=== PATIENT | female | born 1970 | race Caucasian/White ===

== ENCOUNTER → 2018-05-03 14:42 | Outpatient (CLI) | payer OTHER, MEDICAID, SELFPAY ==
--- NOTE | 2018-05-03 14:45 | DI.MG.S_ITS ---
BILATERAL DIGITAL DIAGNOSTIC MAMMOGRAM 3D/2D: 05/03/2018 CLINICAL: Left breast lump. Comparison is made to exams dated: 07/04/2016 mammogram, 11/24/2014 mammogram, and 08/26/2013 mammogram - [facility]. The tissue of both breasts is extremely dense, which lowers the sensitivity of mammography. There is a mass in the left breast at 2 o'clock anterior depth. This correlates as palpated. There also is a high density mass in the left breast at 9 o'clock middle depth. No other significant masses, calcifications, or other findings are seen in either breast. IMPRESSION: INCOMPLETE: NEEDS ADDITIONAL IMAGING EVALUATION The mass in the left breast at 2 o'clock anterior depth is indeterminate. An ultrasound is recommended. The high density mass in the left breast at 9 o'clock middle depth likely represents a cyst and is indeterminate. An ultrasound is recommended. This exam was interpreted at Station ID: [id number]. NOTE: For mammograms, a report in lay terms will be sent to the patient. Approximately 15% of breast malignancies will not be visualized mammographically. In the management of a palpable breast mass, a negative mammogram must not discourage biopsy of a clinically suspicious lesion. Electronically Signed By: Christi reed/giulia:05/03/2018 15:17:40 letter sent: Additional Imaging Needed ACR BI-RADS Category 0: Incomplete [id number]
--- NOTE | 2018-05-03 14:45 | DI.US.S_ITS ---
ULTRASOUND OF LEFT BREAST: 05/03/2018 CLINICAL: Palpable left breast lump. Patient returns for additional imaging over a suspected mass in the left breast. Comparison is made to exams dated: 05/03/2018 mammogram, 07/04/2016 mammogram, and 11/24/2014 mammogram - [facility]. Color flow ultrasound of the left breast was performed on the areas of interest. Mckenna scale images of the real-time examination were reviewed. There is a benign 1.4 cm x 0.9 cm x 1.2 cm simple cyst in the left breast at 3 o'clock anterior depth. This correlates as palpated and with mammography findings. There also is a benign 0.9 cm x 0.8 cm x 0.9 cm simple cyst in the left breast at 9 o'clock posterior depth. This correlates with mammography findings. IMPRESSION: BENIGN There is no sonographic evidence of malignancy. The 1.4 cm x 0.9 cm x 1.2 cm simple cyst in the left breast at 3 o'clock anterior depth is benign. The 0.9 cm x 0.8 cm x 0.9 cm simple cyst in the left breast at 9 o'clock posterior depth is benign. A 1 year screening mammogram is recommended. This exam was interpreted at Station ID: [id number]. Electronically Signed By: Christi reed/giulia:05/03/2018 18:15:33 letter sent: Normal Exam Ultrasound BI-RADS: 2 Benign
== END ==
PROVIDERS: PCP Internal Medicine
DX: R92.8 Other abnormal and inconclusive findings on diagnostic imaging of breast (principal); N60.02 Solitary cyst of left breast
CPT/HCPCS: 76642; 77066; G0279

== ENCOUNTER → 2018-11-30 16:06 | Outpatient (CLI) | payer OTHER, MEDICAID, SELFPAY ==
--- NOTE | 2018-11-30 16:07 | DI.RAD.S_ITS ---
PROCEDURE: XR CERVICAL SPINE 2V OR 3V INDICATIONS: neck pain TECHNIQUE: 3 view(s) of the cervical spine were acquired. COMPARISON: None. FINDINGS: Bones: No fractures or dislocations to the T2 level. The lateral masses of C1 appear intact on the odontoid view. Mild straightening of normal cervical lordosis likely related to positioning versus concurrent muscle spasms. Multilevel cervical spondylitic changes most pronounced at C5-6. No suspicious bony lesions. Soft tissues: No prevertebral soft tissue swelling. IMPRESSION: Cervical spine without acute osseous abnormalities. Multilevel cervical spondylosis most pronounced at C5-6. Dictated by: Alfa Thrasher M.D. on 11/30/2018 at 18:04 Approved by: Alfa Thrasher M.D. on 11/30/2018 at 18:05
== END ==
PROVIDERS: Family Provider Internal Medicine; PCP Internal Medicine; Visit Provider Internal Medicine
DX: M54.2 Cervicalgia (principal); M47.812 Spondylosis without myelopathy or radiculopathy, cervical region
CPT/HCPCS: 72040

== ENCOUNTER 2019-01-03 12:42 | Emergency (ER) | payer OTHER, MEDICAID, SELFPAY ==
[2019-01-03 12:50] VITALS: BP 130/74; PULSE 92; RESP 20; TEMP 37.2; O2SAT 98; BMI 21.9
--- NOTE | 2019-01-03 13:07 | PC.NURSE ---
pt reports while working at 1045am, with near syncope, 45 minutes later, with syncope, right head minor injury, down for 4 minutes, un witness, (states, playing the same songs) today with left eye discomfort, worsen with movement, denies visual changes. had cervical xray 3 weeks, recommends MRI, insurance refused, till PT. pt also reports, hx of syncope 2 weeks ago. now with dizziness. denies fever or vomiting.
--- NOTE | 2019-01-03 13:10 | ED.NECK ---
HPI - Neck Pain/Injury General Chief Complaint: Neck Pain/Injury Stated Complaint: 4 months pain behind left eye, fainted today Time Seen by Provider: 01/03/19 13:09 Source: patient and old records reviewed Mode of arrival: ambulatory Limitations: no limitations History of Present Illness HPI Narrative: This is a 48-year-old female who comes to the emergency department with complaint of neck pain on the left side that started in August, she has now started to have pain behind her left eye. She finds that it is worse when she lays flat and rotates her head. The pain will radiate down the left arm she states she had an x-ray was told she had arthritis and she needed to follow up with PT. She has had 3 episodes of syncope the 1st was about 2 weeks ago in the middle of the night she got up to go the bathroom she states she passed out she thinks she is on the floor for a minute to 5 minutes. She had an abrasion on her face. She had her cold/hot clammy feeling just before it happened. She had 2 episodes today they were about 40 minutes apart. She states she did hit her head. She states she did not totally lose consciousness but she went to tunnel vision and everything was black. So she was not really able to protect herself and that is how she hit her head on a brick. She states she had pain behind her left eye when that happened. She was driving and she felt dizzy and lightheaded, she does not describe any vertigo symptoms. she states she looked to the side and felt like her vision took a 2nd to catch up. With the 1st episode of syncope 2 weeks ago she had nausea, she has not had any since then. She has not had any vomiting. She denies any chest pain, no shortness of breath. She does sometimes get some tingling down her left arm and pain on the outside around the skin itself. 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 When she turns her neck to the left it feels like it snapped and cracks. Initially she was referred to her primary care because she was seeing a chiropractor and they were uncomfortable after manipulating her and hearing these noises. Related Data Home Medications Medication Instructions Recorded Confirmed ibuprofen 1 dose PO PRN PRN #0 08/10/11 01/03/19 alprazolam 0.5 mg tablet 0.5 mg PO BID PRN 11/30/18 01/03/19 Women's Daily Supplement 1 cap PO DAILY 01/03/19 01/03/19 acetaminophen 1 dose PO PRN PRN 01/03/19 01/03/19 estradiol 0.5 mg PO QPM 01/03/19 01/03/19 venlafaxine 150 mg PO QPM 01/03/19 01/03/19 Previous Rx's Medication Instructions Recorded norethindrone (contraceptive) 0.35 mg PO QDAY #28 tab 09/04/18 [Sheree] trazodone 50 mg tablet 50 mg PO DAILY #30 tab 11/30/18 Allergies Allergy/AdvReac Type Severity Reaction Status Date / Time No Known Drug Allergies Allergy Verified 01/03/19 13:04 Review of Systems Review of Systems ROS Unobtainable: All systems reviewed & are unremarkable except as noted in HPI and below Constitutional Denies chills, Denies difficulty sleeping, Denies fatigue, Denies fever(s), Reports headache(s) (Pain behind left eye), Denies lethargy, Denies malaise and Denies weakness Eyes Denies blurry vision, Denies diplopia and Reports other visual disturbances ENT Ears, Nose, Mouth, and Throat: Denies vertigo, Reports dizziness, Reports headache(s) (Pain behind left eye), Reports neck pain and Denies other (Facial droop) Cardiovascular Denies chest pain, Reports syncope, Denies edema, Denies irregular heart rhythm, Denies lightheadedness, Reports radiating jaw, neck or arm pain, Denies palpitations, Denies dyspnea, Denies dyspnea on exertion and Denies orthopnea Respiratory Denies chest congestion, Denies cough, Denies pain on inspiration, Denies pain with cough, Denies dyspnea, Denies dyspnea on exertion, Denies stridor and Denies wheezing Gastrointestinal Gastrointestinal: Denies abdominal pain, Denies change in bowel habits, Denies fecal incontinence, Denies diarrhea, Denies nausea (With 1st episode of syncope 2 weeks ago) and Denies vomiting Genitourinary Denies hematuria, Denies urinary frequency, Denies dysuria, Denies flank pain, Denies urinary incontinence and Denies urinary urgency Musculoskeletal Reports as per HPI, Denies abnormal gait, Denies back pain, Denies limited range of motion, Reports muscle weakness (? fire safety director per patient), Reports neck pain, Denies numbness, Reports radiating pain into limb and Reports tingling Integumentary/Breasts Denies rash Neurologic Denies abnormal speech, Denies abnormal gait, Denies confusion, Denies vertigo, Reports dizziness, Reports syncope, Reports headache(s) (Pain behind left eye), Denies lack of coordination, Denies numbness, Reports radicular pain, Denies seizure-like activity, Denies sensory deficit, Reports tingling, Reports paresthesias and Denies weakness Psychiatric Denies confusion Endocrine Denies fatigue and Denies palpitations Allergic/Immunologic Denies wheezing [facility] Medical History Palpitations (Chronic 07/29/04) Anxiety (Chronic) Depression (Chronic 07/25/11) Panic attack (Chronic 06/10/14) Migraine headache (Chronic 08/04/14) Dysmenorrhea (Chronic 08/04/14) Surgical History History of lithotripsy (Resolved) Status post delivery (Resolved ~2005) Social History Smoking Status: Former smoker Social History (Updated 01/03/19 @ 14:32 by Kathie Gomez DO) Smoking Status: Former smoker alcohol intake: current substance use type: does not use Exam Narrative Exam Narrative: GEN: well nourished, well appearing female, alert and oriented x 3, patient appears to be in mild distress. HEENT: Atraumatic, pupils are equal round reactive to light, extraocular movements are intact, nares are clear, TMs are clear with no fluid, there is no conjunctival pallor. Throat is clear without any exudates, erythema, tonsillar enlargement or uvular deviation, no facial droop. Full range of motion. HEART: Regular rate and rhythm without murmur, clicks, rubs. No carotid bruits, pulses are equal in upper extremities LUNGS:Lungs clear to auscultation, no wheezes, rales, crackles, chest moves symmetrically ABD:bowel sounds normal, soft, non-tender, no guarding, rebound, rigidity, no masses noted, no hepatosplenomegaly BACK: No cervical, thoracic or lumbar vertebral point tenderness. Patient has normal range of motion. Patient's gait is normal. Rectal exam is deferred. Muscle strength is 5/5 upper and lower extremities, DTRs are 2/4 upper and lower extremities. sensation intact to light palpation in upper and lower extremities as well as face. MSCL: Non-tender, no muscle atrophy, muscles strength 5/5 upper and lower extremities, full range of motion. NEURO:CN 2-12 intact, sensation normal, reflexes 2/4 upper and lower extremities. finger nose finger test normal, heel mcdaniel test normal Initial Vital Signs Initial Vital Signs: Vital Signs Temperature 99.0 F 01/03/19 12:50 Pulse Rate 92 H 01/03/19 12:50 Respiratory Rate 20 01/03/19 12:50 Blood Pressure 130/74 01/03/19 12:50 Pulse Oximetry 98 01/03/19 12:50 Course Orders Ordered: ED Orders 01/03/19 12:57 EKG-12 Lead Stat 01/03/19 13:27 XR chest 1V Stat 01/03/19 13:30 Complete Blood Count AUTO DIFF Stat Comprehensive Metabolic Panel Stat Lipase Stat Partial Thromboplastin Time Stat Prothrombin Time INR Stat Troponin & CK Cardiac Panel Stat 01/03/19 14:12 CT angio head and neck Stat 01/03/19 15:34 Urine Culture Stat Urine Microscopic Stat Discontinued Medications Sodium Chloride (Normal Saline 0.9%) 1,000 mls @ 1,000 mls/hr IV BOLUS ONE Stop: 01/03/19 15:11 Last Infusion: 01/03/19 15:45 Dose: 0 mls/hr Admin: 01/03/19 14:20 Dose: 1,000 mls/hr Vital Signs - 8 hr 01/03/19 12:50 01/03/19 13:30 01/03/19 14:00 Temperature 99.0 F Pulse Rate 92 H 77 86 Respiratory Rate 20 Blood Pressure 130/74 Blood Pressure [Left Arm] 123/79 145/83 H Pulse Oximetry 98 98 100 01/03/19 14:30 01/03/19 15:00 Temperature Pulse Rate 82 74 Respiratory Rate 16 16 Blood Pressure Blood Pressure [Left Arm] 135/73 134/77 Pulse Oximetry 100 99 MDM - Neck Pain/Injury Lab Data Attestation: I reviewed the patient's lab results. Result diagrams: 01/03/19 13:30 01/03/19 13:30 Lab Results 01/03/19 01/03/19 01/03/19 Range/Units 13:30 13:30 13:30 WBC 5.0 (4.5-11.0) X10^3/uL RBC 3.90 L (4.0-5.2) X10^6/uL Hgb 13.0 (12.0-16.0) g/dL Hct 37.3 (36-46) % MCV 95.9 (80-100) fL MCH 33.3 (26-34) PG MCHC 34.7 (30-36) % RDW 12.7 (11.6-14.8) % Plt Count 292 (150-400) X10^3/uL Neut % (Auto) 58.3 (50-75) % Lymph % (Auto) 31.1 (25-40) % Emanuel % (Auto) 8.5 (3-14) % Eos % (Auto) 1.3 L (2-4) % Baso % (Auto) 0.8 (0-2) % Neut # (Auto) 2900 (5087-1266) /uL Lymph # (Auto) 1500 (5254-1191) /uL Emanuel # (Auto) 400 (0-900) /uL Eos # (Auto) 100 (0-450) /uL Baso # (Auto) 0 (0-100) /uL PT 11.8 (10.1-12.7) SECONDS INR 1.0 (0.9-1.3) APTT 29 (26.4-36.2) SECONDS Sodium 139 (137-145) mmol/L Potassium 4.0 (3.4-5.1) mmol/L Chloride 101 (98-107) mmol/L Carbon Dioxide 28 (22-32) mmol/L BUN 20 H (7-17) mg/dL Creatinine 0.60 (0.52-1.04) mg/dL Estimated GFR > 60.0 (>60) mL/min BUN/Creatinine Ratio 33.3 H (6-22) Glucose 99 (70-100) mg/dL Calcium 9.3 (8.4-10.2) mg/dL Total Bilirubin 0.6 (0.2-1.3) mg/dL AST 24 (14-36) IU/L ALT 16 (9-52) IU/L Alkaline Phosphatase 51 (38-126) U/L Total Creatine Kinase 105 (30-135) U/L CK-MB (CK-2) 0.75 (<2.37) ng/mL CK-MB (CK-2) Rel Index 0.7 L (1.5-5.0) % Troponin I < 0.012 (0.01-0.034) ng/mL Total Protein 7.4 (6.3-8.2) g/dL Albumin 4.6 (3.5-5.0) g/dL Globulin 2.8 (1.7-4.1) g/dL Albumin/Globulin Ratio 1.6 (1.0-2.8) Lipase 107 (23-300) U/L Urine RBC (0-5/HPF) Urine WBC (0-5/HPF) Ur Squamous Epith Cells (0-5/HPF) Amorphous Sediment Urine Bacteria (None) Urine Mucus (Negative) Ur Culture Indicated? 01/03/19 Range/Units 15:34 WBC (4.5-11.0) X10^3/uL RBC (4.0-5.2) X10^6/uL Hgb (12.0-16.0) g/dL Hct (36-46) % MCV (80-100) fL MCH (26-34) PG MCHC (30-36) % RDW (11.6-14.8) % Plt Count (150-400) X10^3/uL Neut % (Auto) (50-75) % Lymph % (Auto) (25-40) % Emanuel % (Auto) (3-14) % Eos % (Auto) (2-4) % Baso % (Auto) (0-2) % Neut # (Auto) (0947-7494) /uL Lymph # (Auto) (6621-4594) /uL Emanuel # (Auto) (0-900) /uL Eos # (Auto) (0-450) /uL Baso # (Auto) (0-100) /uL PT (10.1-12.7) SECONDS INR (0.9-1.3) APTT (26.4-36.2) SECONDS Sodium (137-145) mmol/L Potassium (3.4-5.1) mmol/L Chloride (98-107) mmol/L Carbon Dioxide (22-32) mmol/L BUN (7-17) mg/dL Creatinine (0.52-1.04) mg/dL Estimated GFR (>60) mL/min BUN/Creatinine Ratio (6-22) Glucose (70-100) mg/dL Calcium (8.4-10.2) mg/dL Total Bilirubin (0.2-1.3) mg/dL AST (14-36) IU/L ALT (9-52) IU/L Alkaline Phosphatase (38-126) U/L Total Creatine Kinase (30-135) U/L CK-MB (CK-2) (<2.37) ng/mL CK-MB (CK-2) Rel Index (1.5-5.0) % Troponin I (0.01-0.034) ng/mL Total Protein (6.3-8.2) g/dL Albumin (3.5-5.0) g/dL Globulin (1.7-4.1) g/dL Albumin/Globulin Ratio (1.0-2.8) Lipase (23-300) U/L Urine RBC 1-5/hpf (0-5/HPF) Urine WBC 1-5/hpf (0-5/HPF) Ur Squamous Epith Cells 5-10 /hpf H (0-5/HPF) Amorphous Sediment 1+ Urine Bacteria Many (>30) H (None) Urine Mucus 1+ H (Negative) Ur Culture Indicated? Specimen cultured Imaging Data Chest x-ray: Attestation: I personally reviewed and interpreted this imaging study as follows: My impression: No acute process Head and neck angio: Radiologist's impression: Rhea Ariza 48 F 1970 [place] [address] CT Scan Report Signed Patient: ToRhea JMR#: [id number] : 1970Acct:[id number] Age/Sex: 48 / FDate of Service: 01/03/19 Loc: ED Accession Number: [id number] Procedure: CT angio head and neck Ordering Provider: Kathie Gomez D.O. PROCEDURE: CT ANGIO HEAD AND NECK INDICATIONS: syncope x 3 in 2 weeks, left eye pain, neck pain, left arm pain. TECHNIQUE: Pre-contrast 4.5 mm thick sections acquired from the foramen magnum to the vertex. After the administration of intravenous contrast, 1 mm thick sections acquired from the aortic arch through the [place] of [place]. Post-contrast 4.5 mm thick sections then re-acquired from the foramen magnum to the vertex. 3-dimensional nzeuofz-pdzwcbnqm-ctdmzbtpxs (MIP) and/or volume rendering reformats were acquired of the central intracranial vasculature and neck separately. COMPARISON: None. FINDINGS: Image quality: Excellent. BRAIN: CSF spaces: Ventricles are normal in size and shape. Basal cisterns are patent. No extra-axial fluid collections. Brain: No midline shift. No intracranial bleeds or masses. Mckenna-white matter interface appears intact. Skull and face: Calvarium and facial bones appear intact, without suspicious lesions. Orbits appear normal. Sinuses: Sinuses and mastoids are clear. HEAD CT ANGIOGRAPHY: Anterior circulation: Intracranial internal carotid arteries are normal in size and flow. The flow within the paired anterior cerebral arteries is normal and symmetric. The flow within the middle cerebral arteries is normal and symmetric. The anterior communicating artery is seen. No aneurysms are seen. Posterior circulation: Visualized portions of the vertebral arteries demonstrate normal caliber, and join to form a normal appearing basilar artery. Flow within the posterior cerebral arteries is normal and symmetric. No aneurysms are seen. Normal contrast opacification of the dural sinuses. NECK CT ANGIOGRAPHY: Carotid system: The great vessels demonstrate a conventional anatomy as they arise from the aortic arch. The origins of the common carotid arteries appear patent. The common carotid arteries demonstrate normal caliber and courses. The bifurcation regions are both widely patent. The internal carotid arteries demonstrate normal calibers and courses. Posterior circulation: The origins of the vertebral arteries both appear widely patent. The more superior extracranial portions of both vertebral arteries also demonstrate normal courses and calibers. They join to form a normal appearing basilar artery. Soft tissues: Visualized neck soft tissues demonstrate no suspicious abnormalities. Bones: No suspicious bony lesions. Visualized cervical spine appears normally aligned. IMPRESSION: 1. No acute intracranial disease process. 2. No large vessel occlusion, hemodynamically significant vascular stenosis, vascular dissection or aneurysm. Any quantitative measurements of stenosis were performed using NASCET criteria. Dictated by: Silvia Diez MD, PhD on 01/03/2019 at 14:53 Approved by: Silvia Diez MD, PhD on 01/03/2019 at 15:00 ECG Data Attestation: I personally reviewed and interpreted this ECG as follows: Interpretation: Sinus rhythm with a rate 83 ID interval 172 QRS of 90 QTC of [address] elevation or depression. MDM Narrative Medical decision making narrative: Patient was asking about an MRI specifically of the soft tissue of her neck but discussed that with her complaint of recurrent syncope, pain behind the left eye as well as pain in her neck and radiculopathy type symptoms in left extremity and do a head and neck CT angio to evaluate for blood, mass as well as dissection. EKG does not show any acute changes, lab work not show any major abnormalities including cardiac enzymes. Chest x-ray is normal. CT Angio of head and neck are negative for bleed, aneurysm or dissection. Patient and I discussed findings, patient see's Dr. Paulino. Dr. Paulino defers observation but will work on setting up for ECHO, Holter. Discussed at length with patient, asked to return if continuing episodes of syncope. Discharge Plan Departure Patient Disposition: Home Clinical Impression: Syncope Discharge Date/Time: 01/03/19 16:41 Interventions: ED Discharge Assessment Last Done: 01/03/19 16:41 Instructions: DI for Syncope in Adults (Fainting) Activity Restrictions/Additional Instructions: Call Dr. Paulino' office to set up follow up tomorrow. Case has been discussed with Dr. Paulino, he is happy to help set you up for echo as well as on monitor for heart arrhythmias as an outpatient. You can discuss any further imaging of your neck as needed. Avoid any sedating mediations until cleared by your physician. Return to the emergency room for recurrent symptoms, fevers greater than 100.4, sudden severe or worsening headaches, recurrent passing out, persistent vomiting, new chest pain, shortness of breath or other new or concerning symptoms. Prescriptions: No Action ibuprofen 200 mg Tablet 1 dose PO PRN PRN (Reason: pain) Qty: 0 RF: 0 norethindrone (contraceptive) [Sheree] 0.35 mg tablet 0.35 mg PO QDAY Qty: 28 RF: 1 alprazolam 0.5 mg tablet 0.5 mg PO BID PRN (Reason: anxiety/sleep) RF: 0 trazodone 50 mg tablet 50 mg PO DAILY Qty: 30 RF: 3 venlafaxine 150 mg capsule,extended release 24hr 150 mg PO QPM RF: 0 estradiol 0.5 mg tablet 0.5 mg PO QPM RF: 0 acetaminophen 325 mg Tablet 1 dose PO PRN PRN (Reason: pain) RF: 0 Women's Daily Supplement 1 cap PO DAILY RF: 0 Referrals: Josh Paulino MD [Primary Care Provider] -
--- NOTE | 2019-01-03 13:27 | DI.RAD.S_ITS ---
PROCEDURE: XR CHEST 1V INDICATIONS: Shortness of breath. TECHNIQUE: One view of the chest was acquired. COMPARISON: None. FINDINGS: Surgical changes and devices: None. Lungs and pleura: Lungs are clear. No pleural effusions or pneumothorax. Mediastinum: Mediastinal contours appear normal. Heart size is normal. Bones and chest wall: No suspicious bony lesions. Overlying soft tissues appear unremarkable. IMPRESSION: No acute cardio pulmonary pathology. Dictated by: Alexy Portillo M.D. on 01/03/2019 at 14:56 Approved by: Alexy Portillo M.D. on 01/03/2019 at 14:56
[2019-01-03 13:30] VITALS: BP 123/79; PULSE 77; O2SAT 98
[2019-01-03 13:43] LABS: Add Manual Diff / Slide Review NO; Basophils Absolute Auto 0 /uL (0-100); Basophils Percent Auto 0.8 % (0-2); Eosinophils Absolute Auto 100 /uL (0-450); Eosinophils Percent Auto 1.3 % (2-4); Hematocrit 37.3 % (36-46); Lymphocytes Absolute Auto 1500 /uL (1100-4500); Lymphocytes Percent Auto 31.1 % (25-40); Mean Corpuscular HGB Conc 34.7 % (30-36); Mean Corpuscular Hemoglobin 33.3 PG (26-34); Mean Corpuscular Volume 95.9 fL (80-100); Monocytes Absolute Auto 400 /uL (0-900); Monocytes Percent Auto 8.5 % (3-14); Neutrophils Absolute Auto 2900 /uL (1500-7000); Neutrophils Percent Auto 58.3 % (50-75); Platelet Count 292 X10^3/uL (150-400); Prothrombin Time 11.8 SECONDS (10.1-12.7); Red Cell Distribution Width 12.7 % (11.6-14.8)
[2019-01-03 13:46] LABS: PTT Partial Thromboplastin Tim 29 SECONDS (26.4-36.2)
[2019-01-03 13:47] LABS: Alanine Aminotransferase 16 IU/L (9-52); Albumin 4.6 g/dL (3.5-5.0); Albumin Globulin Ratio 1.6 (1.0-2.8); Alkaline Phosphatase 51 U/L (38-126); Aspartate Aminotransferase 24 IU/L (14-36); BUN Creatinine Ratio 33.3 (6-22); Bilirubin Total 0.6 mg/dL (0.2-1.3); Blood Urea Nitrogen 20 mg/dL (7-17); Calcium 9.3 mg/dL (8.4-10.2); Carbon Dioxide 28 mmol/L (22-32); Chloride 101 mmol/L (98-107); Creatine Kinase 105 U/L (30-135); Estimated Glomerular Filt Rate > 60.0 mL/min (>60); Globulin 2.8 g/dL (1.7-4.1); Glucose 99 mg/dL (70-100); HEMOLYSIS < 15 (0-50); Lipase 107 U/L (23-300); Sodium 139 mmol/L (137-145); Total Protein 7.4 g/dL (6.3-8.2)
[2019-01-03 13:59] LABS: Troponin I < 0.012 ng/mL (0.01-0.034)
[2019-01-03 14:00] VITALS: BP 145/83; PULSE 86; O2SAT 100
[2019-01-03 14:02] LABS: CKMB % Relative Index 0.7 % (1.5-5.0); Creatine Kinase MB 0.75 ng/mL (<2.37)
--- NOTE | 2019-01-03 14:12 | DI.CT.S_ITS ---
PROCEDURE: CT ANGIO HEAD AND NECK INDICATIONS: syncope x 3 in 2 weeks, left eye pain, neck pain, left arm pain. TECHNIQUE: Pre-contrast 4.5 mm thick sections acquired from the foramen magnum to the vertex. After the administration of intravenous contrast, 1 mm thick sections acquired from the aortic arch through the [place] of [place]. Post-contrast 4.5 mm thick sections then re-acquired from the foramen magnum to the vertex. 3-dimensional yovwguo-ocvwufozl-pfeucepxlb (MIP) and/or volume rendering reformats were acquired of the central intracranial vasculature and neck separately. COMPARISON: None. FINDINGS: Image quality: Excellent. BRAIN: CSF spaces: Ventricles are normal in size and shape. Basal cisterns are patent. No extra-axial fluid collections. Brain: No midline shift. No intracranial bleeds or masses. Mckenna-white matter interface appears intact. Skull and face: Calvarium and facial bones appear intact, without suspicious lesions. Orbits appear normal. Sinuses: Sinuses and mastoids are clear. HEAD CT ANGIOGRAPHY: Anterior circulation: Intracranial internal carotid arteries are normal in size and flow. The flow within the paired anterior cerebral arteries is normal and symmetric. The flow within the middle cerebral arteries is normal and symmetric. The anterior communicating artery is seen. No aneurysms are seen. Posterior circulation: Visualized portions of the vertebral arteries demonstrate normal caliber, and join to form a normal appearing basilar artery. Flow within the posterior cerebral arteries is normal and symmetric. No aneurysms are seen. Normal contrast opacification of the dural sinuses. NECK CT ANGIOGRAPHY: Carotid system: The great vessels demonstrate a conventional anatomy as they arise from the aortic arch. The origins of the common carotid arteries appear patent. The common carotid arteries demonstrate normal caliber and courses. The bifurcation regions are both widely patent. The internal carotid arteries demonstrate normal calibers and courses. Posterior circulation: The origins of the vertebral arteries both appear widely patent. The more superior extracranial portions of both vertebral arteries also demonstrate normal courses and calibers. They join to form a normal appearing basilar artery. Soft tissues: Visualized neck soft tissues demonstrate no suspicious abnormalities. Bones: No suspicious bony lesions. Visualized cervical spine appears normally aligned. IMPRESSION: 1. No acute intracranial disease process. 2. No large vessel occlusion, hemodynamically significant vascular stenosis, vascular dissection or aneurysm. Any quantitative measurements of stenosis were performed using NASCET criteria. Dictated by: Silvia Diez MD, PhD on 01/03/2019 at 14:53 Approved by: Silvia Diez MD, PhD on 01/03/2019 at 15:00
[2019-01-03] MEDS: SODIUM CHLORIDE 0.9% 1,000 ML 1000 ML IV (14:20)
--- NOTE | 2019-01-03 14:23 | ED_ITS ---
HPI - Neck Pain/Injury General Chief Complaint: Neck Pain/Injury Stated Complaint: 4 months pain behind left eye, fainted today Time Seen by Provider: 01/03/19 13:09 Source: patient and old records reviewed Mode of arrival: ambulatory Limitations: no limitations History of Present Illness HPI Narrative: This is a 48-year-old female who comes to the emergency department with complaint of neck pain on the left side that started in August, she has now started to have pain behind her left eye. She finds that it is worse when she lays flat and rotates her head. The pain will radiate down the left arm she states she had an x-ray was told she had arthritis and she needed to follow up with PT. She has had 3 episodes of syncope the 1st was about 2 weeks ago in the middle of the night she got up to go the bathroom she states she passed out she thinks she is on the floor for a minute to 5 minutes. She had an abrasion on her face. She had her cold/hot clammy feeling just before it happened. She had 2 episodes today they were about 40 minutes apart. She states she did hit her head. She states she did not totally lose consciousness but she went to tunnel vision and everything was black. So she was not really able to protect herself and that is how she hit her head on a brick. She states she had pain behind her left eye when that happened. She was driving and she felt dizzy and lightheaded, she does not describe any vertigo symptoms. she states she looked to the side and felt like her vision took a 2nd to catch up. With the 1st episode of syncope 2 weeks ago she had nausea, she has not had any since then. She has not had any vomiting. She denies any chest pain, no shortness of breath. She does sometimes get some tingling down her left arm and pain on the outside around the skin itself. She denies any weakness but felt like her hand box liner is sometimes a little bit less than full. When she turns her neck to the left it feels like it snapped and cracks. Initially she was referred to her primary care because she was seeing a chiropractor and they were uncomfortable after manipulating her and hearing these noises. Related Data Home Medications Medication Instructions Recorded Confirmed ibuprofen 1 dose PO PRN PRN #0 08/10/11 01/03/19 alprazolam 0.5 mg tablet 0.5 mg PO BID PRN 11/30/18 01/03/19 Women's Daily Supplement 1 cap PO DAILY 01/03/19 01/03/19 acetaminophen 1 dose PO PRN PRN 01/03/19 01/03/19 estradiol 0.5 mg PO QPM 01/03/19 01/03/19 venlafaxine 150 mg PO QPM 01/03/19 01/03/19 Previous Rx's Medication Instructions Recorded norethindrone (contraceptive) 0.35 mg PO QDAY #28 tab 09/04/18 [Sheree] trazodone 50 mg tablet 50 mg PO DAILY #30 tab 11/30/18 Allergies Allergy/AdvReac Type Severity Reaction Status Date / Time No Known Drug Allergies Allergy Verified 01/03/19 13:04 Review of Systems Review of Systems ROS Unobtainable: All systems reviewed & are unremarkable except as noted in HPI and below Constitutional Denies chills, Denies difficulty sleeping, Denies fatigue, Denies fever(s), R eports headache(s) (Pain behind left eye), Denies lethargy, Denies malaise and Denies weakness Eyes Denies blurry vision, Denies diplopia and Reports other visual disturbances ENT Ears, Nose, Mouth, and Throat: Denies vertigo, Reports dizziness, Reports headache(s) (Pain behind left eye), Reports neck pain and Denies other (Facial droop) Cardiovascular Denies chest pain, Reports syncope, Denies edema, Denies irregular heart rhythm, Denies lightheadedness, Reports radiating jaw, neck or arm pain, Denies palpitations, Denies dyspnea, Denies dyspnea on exertion and Denies orthopnea Respiratory Denies chest congestion, Denies cough, Denies pain on inspiration, Denies pain with cough, Denies dyspnea, Denies dyspnea on exertion, Denies stridor and Denies wheezing Gastrointestinal Gastrointestinal: Denies abdominal pain, Denies change in bowel habits, Denies fecal incontinence, Denies diarrhea, Denies nausea (With 1st episode of syncope 2 weeks ago) and Denies vomiting Genitourinary Denies hematuria, Denies urinary frequency, Denies dysuria, Denies flank pain, Denies urinary incontinence and Denies urinary urgency Musculoskeletal Reports as per HPI, Denies abnormal gait, Denies back pain, Denies limited range of motion, Reports muscle weakness (? box liner per patient), Reports neck pain, Denies numbness, Reports radiating pain into limb and Reports tingling Integumentary/Breasts Denies rash Neurologic Denies abnormal speech, Denies abnormal gait, Denies confusion, Denies vertigo, Reports dizziness, Reports syncope, Reports headache(s) (Pain behind left eye), Denies lack of coordination, Denies numbness, Reports radicular pain, Denies seizure-like activity, Denies sensory deficit, Reports tingling, Reports paresthesias and Denies weakness Psychiatric Denies confusion Endocrine Denies fatigue and Denies palpitations Allergic/Immunologic Denies wheezing [facility] Medical History Palpitations (Chronic 07/29/04) Anxiety (Chronic) Depression (Chronic 07/25/11) Panic attack (Chronic 06/10/14) Migraine headache (Chronic 08/04/14) Dysmenorrhea (Chronic 08/04/14) Surgical History History of lithotripsy (Resolved) Status post delivery (Resolved ~2005) Social History Smoking Status: Former smoker Social History (Updated 01/03/19 @ 14:32 by Kathie Gomez DO) Smoking Status: Former smoker alcohol intake: current substance use type: does not use Exam Narrative Exam Narrative: GEN: well nourished, well appearing female, alert and oriented x 3, patient appears to be in mild distress. HEENT: Atraumatic, pupils are equal round reactive to light, extraocular movements are intact, nares are clear, TMs are clear with no fluid, there is no conjunctival pallor. Throat is clear without any exudates, erythema, tonsillar enlargement or uvular deviation, no facial droop. Full range of motion. HEART: Regular rate and rhythm without murmur, clicks, rubs. No carotid bruits, pulses are equal in upper extremities LUNGS:Lungs clear to auscultation, no wheezes, rales, crackles, chest moves symmetrically ABD:bowel sounds normal, soft, non-tender, no guarding, rebound, rigidity, no masses noted, no hepatosplenomegaly BACK: No cervical, thoracic or lumbar vertebral point tenderness. Patient has normal range of motion. Patient's gait is normal. Rectal exam is deferred. Muscle strength is 5/5 upper and lower extremities, DTRs are 2/4 upper and lower extremities. sensation intact to light palpation in upper and lower extremities as well as face. MSCL: Non-tender, no muscle atrophy, muscles strength 5/5 upper and lower extremities, full range of motion. NEURO:CN 2-12 intact, sensation normal, reflexes 2/4 upper and lower extrem ities. finger nose finger test normal, heel mcdaniel test normal Initial Vital Signs Initial Vital Signs: Vital Signs Temperature 99.0 F 01/03/19 12:50 Pulse Rate 92 H 01/03/19 12:50 Respiratory Rate 20 01/03/19 12:50 Blood Pressure 130/74 01/03/19 12:50 Pulse Oximetry 98 01/03/19 12:50 Course Orders Ordered: ED Orders 01/03/19 12:57 EKG-12 Lead Stat 01/03/19 13:27 XR chest 1V Stat 01/03/19 13:30 Complete Blood Count AUTO DIFF Stat Comprehensive Metabolic Panel Stat Lipase Stat Partial Thromboplastin Time Stat Prothrombin Time INR Stat Troponin & CK Cardiac Panel Stat 01/03/19 14:12 CT angio head and neck Stat 01/03/19 15:34 Urine Culture Stat Urine Microscopic Stat Discontinued Medications Sodium Chloride (Normal Saline 0.9%) 1,000 mls @ 1,000 mls/hr IV BOLUS ONE Stop: 01/03/19 15:11 Last Infusion: 01/03/19 15:45 Dose: 0 mls/hr Admin: 01/03/19 14:20 Dose: 1,000 mls/hr Vital Signs - 8 hr 01/03/19 12:50 01/03/19 13:30 01/03/19 14:00 Temperature 99.0 F Pulse Rate 92 H 77 86 Respiratory Rate 20 Blood Pressure 130/74 Blood Pressure [Left Arm] 123/79 145/83 H Pulse Oximetry 98 98 100 01/03/19 14:30 01/03/19 15:00 Temperature Pulse Rate 82 74 Respiratory Rate 16 16 Blood Pressure Blood Pressure [Left Arm] 135/73 134/77 Pulse Oximetry 100 99 MDM - Neck Pain/Injury Lab Data Attestation: I reviewed the patient's lab results. Result diagrams: 01/03/19 13:30 01/03/19 13:30 Lab Results 01/03/19 01/03/19 01/03/19 Range/Units 13:30 13:30 13:30 WBC 5.0 (4.5-11.0) X10^3/uL RBC 3.90 L (4.0-5.2) X10^6/uL Hgb 13.0 (12.0-16.0) g/dL Hct 37.3 (36-46) % MCV 95.9 (80-100) fL MCH 33.3 (26-34) PG MCHC 34.7 (30-36) % RDW 12.7 (11.6-14.8) % Plt Count 292 (150-400) X10^3/uL Neut % (Auto) 58.3 (50-75) % Lymph % (Auto) 31.1 (25-40) % [place] % (Auto) 8.5 (3-14) % Eos % (Auto) 1.3 L (2-4) % Baso % (Auto) 0.8 (0-2) % Neut # (Auto) 2900 (0636-3100) /uL Lymph # (Auto) 1500 (1675-4899) /uL Dundy # (Auto) 400 (0-900) /uL Eos # (Auto) 100 (0-450) /uL Baso # (Auto) 0 (0-100) /uL PT 11.8 (10.1-12.7) SECONDS INR 1.0 (0.9-1.3) APTT 29 (26.4-36.2) SECONDS Sodium 139 (137-145) mmol/L Potassium 4.0 (3.4-5.1) mmol/L Chloride 101 (98-107) mmol/L Carbon Dioxide 28 (22-32) mmol/L BUN 20 H (7-17) mg/dL Creatinine 0.60 (0.52-1.04) mg/dL Estimated GFR > 60.0 (>60) mL/min BUN/Creatinine Ratio 33.3 H (6-22) Glucose 99 (70-100) mg/dL Calcium 9.3 (8.4-10.2) mg/dL Total Bilirubin 0.6 (0.2-1.3) mg/dL AST 24 (14-36) IU/L ALT 16 (9-52) IU/L Alkaline Phosphatase 51 (38-126) U/L Total Creatine Kinase 105 (30-135) U/L CK-MB (CK-2) 0.75 (<2.37) ng/mL CK-MB (CK-2) Rel Index 0.7 L (1.5-5.0) % Troponin I < 0.012 (0.01-0.034) ng/mL Total Protein 7.4 (6.3-8.2) g/dL Albumin 4.6 (3.5-5.0) g/dL Globulin 2.8 (1.7-4.1) g/dL Albumin/Globulin Ratio 1.6 (1.0-2.8) Lipase 107 (23-300) U/L Urine RBC (0-5/HPF) Urine WBC (0-5/HPF) Ur Squamous Epith Cells (0-5/HPF) Amorphous Sediment Urine Bacteria (None) Urine Mucus (Negative) Ur Culture Indicated? 01/03/19 Range/Units 15:34 WBC (4.5-11.0) X10^3/uL RBC (4.0-5.2) X10^6/uL Hgb (12.0-16.0) g/dL Hct (36-46) % MCV (80-100) fL MCH (26-34) PG MCHC (30-36) % RDW (11.6-14.8) % Plt Count (150-400) X10^3/uL Neut % (Auto) (50-75) % Lymph % (Auto) (25-40) % [place] % (Auto) (3-14) % Eos % (Auto) (2-4) % Baso % (Auto) (0-2) % Neut # (Auto) (3450-3427) /uL Lymph # (Auto) (4575-3736) /uL [place]undy # (Auto) (0-900) /uL Eos # (Auto) (0-450) /uL Baso # (Auto) (0-100) /uL PT (10.1-12.7) SECONDS INR (0.9-1.3) APTT (26.4-36.2) SECONDS Sodium (137-145) mmol/L Potassium (3.4-5.1) mmol/L Chloride (98-107) mmol/L Carbon Dioxide (22-32) mmol/L BUN (7-17) mg/dL Creatinine (0.52-1.04) mg/dL Estimated GFR (>60) mL/min BUN/Creatinine Ratio (6-22) Glucose (70-100) mg/dL Calcium (8.4-10.2) mg/dL Total Bilirubin (0.2-1.3) mg/dL AST (14-36) IU/L ALT (9-52) IU/L Alkaline Phosphatase (38-126) U/L Total Creatine Kinase (30-135) U/L CK-MB (CK-2) (<2.37) ng/mL CK-MB (CK-2) Rel Index (1.5-5.0) % Troponin I (0.01-0.034) ng/mL Total Protein (6.3-8.2) g/dL Albumin (3.5-5.0) g/dL Globulin (1.7-4.1) g/dL Albumin/Globulin Ratio (1.0-2.8) Lipase (23-300) U/L Urine RBC 1-5/hpf (0-5/HPF) Urine WBC 1-5/hpf (0-5/HPF) Ur Squamous Epith Cells 5-10 /hpf H (0-5/HPF) Amorphous Sediment 1+ Urine Bacteria Many (>30) H (None) Urine Mucus 1+ H (Negative) Ur Culture Indicated? Specimen cultured Imaging Data Chest x-ray: Attestation: I personally reviewed and interpreted this imaging study as follows: My impression: No acute process Head and neck angio: Radiologist's impression: Rhea Ariza 48 F 1970 [place] [id number] Scan Report Signed Patient: ToRhea JMR#: [id number] : 1970Acct:[id number] Age/Sex: 48 / FDate of Service: 01/03/19 Loc: ED Accession Number: [id number] Procedure: CT angio head and neck Ordering Provider: Kathie Gomez D.O. PROCEDURE: CT ANGIO HEAD AND NECK INDICATIONS: syncope x 3 in 2 weeks, left eye pain, neck pain, left arm pain. TECHNIQUE: Pre-contrast 4.5 mm thick sections acquired from the foramen magnum to the vertex. After the administration of intravenous contrast, 1 mm thick sections acquired from the aortic arch through the [place] of [place]. Post-contrast 4.5 mm thick sections then re- acquired from the foramen magnum to the vertex. 3-dimensional chmcnia-gmdbpvcbd-eyozbpoauj (MIP) and/or volume rendering reformats were acquired of the central intracranial vasculature and neck separately. COMPARISON: None. FINDINGS: Image quality: Excellent. BRAIN: CSF spaces: Ventricles are normal in size and shape. Basal cisterns are patent. No extra-axial fluid collections. Brain: No midline shift. No intracranial bleeds or masses. Mckenna-white matter interface appears intact. Skull and face: Calvarium and facial bones appear intact, without suspicious lesions. Orbits appear normal. Sinuses: Sinuses and mastoids are clear. HEAD CT ANGIOGRAPHY: Anterior circulation: Intracranial internal carotid arteries are normal in size and flow. The flow within the paired anterior cerebral arteries is normal and symmetric. The flow within the middle cerebral arteries is normal and symmetric. The anterior communicating artery is seen. No aneurysms are seen. Posterior circulation: Visualized portions of the vertebral arteries demonstrate normal caliber, and join to form a normal appearing basilar artery. Flow within the posterior cerebral arteries is normal and symmetric. No aneurysms are seen. Normal contrast opacification of the dural sinuses. NECK CT ANGIOGRAPHY: Carotid system: The great vessels demonstrate a conventional anatomy as they arise from the aortic arch. The origins of the common carotid arteries appear patent. The common carotid arteries demonstrate normal caliber and courses. The bifurcation regions are both widely patent. The internal carotid arteries demonstrate normal calibers and courses. Posterior circulation: The origins of the vertebral arteries both appear widely patent. The more superior extracranial portions of both vertebral arteries also demonstrate normal courses and calibers. They join to form a normal appearing basilar artery. Soft tissues: Visualized neck soft tissues demonstrate no suspicious abnormalities. Bones: No suspicious bony lesions. Visualized cervical spine appears normally aligned. IMPRESSION: 1. No acute intracranial disease process. 2. No large vessel occlusion, hemodynamically significant vascular stenosis, vascular dissection or aneurysm. Any quantitative measurements of stenosis were performed using NASCET criteria. Dictated by: Silvia Dize MD, PhD on 01/03/2019 at 14:53 Approved by: Silvia Diez MD, PhD on 01/03/2019 at 15:00 ECG Data Attestation: I personally reviewed and interpreted this ECG as follows: Interpretation: Sinus rhythm with a rate 83 MS interval 172 QRS of 90 QTC of [address] elevation or depression. MDM Narrative Medical decision making narrative: Patient was asking about an MRI specifically of the soft tissue of her neck but discussed that with her complaint of recurrent syncope, pain behind the left eye as well as pain in her neck and radiculopathy type symptoms in left extremity and do a head and neck CT angio to evaluate for blood, mass as well as dissection. EKG does not show any acute changes, lab work not show any major abnormalities including cardiac enzymes. Chest x-ray is normal. CT Angio of head and neck are negative for bleed, aneurysm or dissection. Patient and I discussed findings, patient see's Dr. Paulino. Dr. Paulino defers observation but will work on setting up for ECHO, Holter. Discussed at length with patient, asked to return if continuing episodes of syncope. Discharge Plan Departure Patient Disposition: Home Clinical Impression: Syncope Discharge Date/Time: 01/03/19 16:41 Interventions: ED Discharge Assessment Last Done: 01/03/19 16:41 Instructions: DI for Syncope in Adults (Fainting) Activity Restrictions/Additional Instructions: Call Dr. Paulino' office to set up follow up tomorrow. Case has been discussed with Dr. Paulino, he is happy to help set you up for echo as well as on monitor for heart arrhythmias as an outpatient. You can discuss any further imaging of your neck as needed. Avoid any sedating mediations until cleared by your physician. Return to the emergency room for recurrent symptoms, fevers greater than 100.4, sudden severe or worsening headaches, recurrent passing out, persistent vomiting, new chest pain, shortness of breath or other new or concerning symptoms. Prescriptions: No Action ibuprofen 200 mg Tablet 1 dose PO PRN PRN (Reason: pain) Qty: 0 RF: 0 norethindrone (contraceptive) [Sheree] 0.35 mg tablet 0.35 mg PO QDAY Qty: 28 RF: 1 alprazolam 0.5 mg tablet 0.5 mg PO BID PRN (Reason: anxiety/sleep) RF: 0 trazodone 50 mg tablet 50 mg PO DAILY Qty: 30 RF: 3 venlafaxine 150 mg capsule,extended release 24hr 150 mg PO QPM RF: 0 estradiol 0.5 mg tablet 0.5 mg PO QPM RF: 0 acetaminophen 325 mg Tablet 1 dose PO PRN PRN (Reason: pain) RF: 0 Women's Daily Supplement 1 cap PO DAILY RF: 0 Referrals: Josh Paulino MD [Primary Care Provider] -
[2019-01-03 14:30] VITALS: BP 135/73; PULSE 82; RESP 16; O2SAT 100
[2019-01-03 15:00] VITALS: BP 134/77; PULSE 74; RESP 16; O2SAT 99
[2019-01-03 16:02] LABS: Amorphous Sediment Urine 1+; RBC Urine 1-5/HPF (0-5/HPF); Squamous Epithelial Cell Urine 5-10 /HPF (0-5/HPF); WBC Urine 1-5/HPF (0-5/HPF)
[2019-01-03 16:03] LABS: Bacteria Urine Many (>30); Culture Indicated Urine Specimen Cultured; Mucus Urine 1+ (Negative)
== END 2019-01-03 16:41 | disposition home or self-care (01) ==
PROVIDERS: Emergency Provider Emergency Medicine; Family Provider Internal Medicine; PCP Internal Medicine
DX: R55 Syncope and collapse (principal); M54.2 Cervicalgia; M79.602 Pain in left arm; H57.12 Ocular pain, left eye
CPT/HCPCS: 36415; 36591; 70496; 70498; 71045; 80053; 81015; 82550; 82553; 83690; 84484; 85025; 85610; 85730; 87086; 93005; 93010; 96360; 99284; 99285; Q9967

== ENCOUNTER → 2019-03-26 19:52 | Outpatient (CLI) | payer OTHER, MEDICAID, SELFPAY | PROVIDERS: Family Provider Internal Medicine; PCP Internal Medicine; Visit Provider Physician Assistant | DX: J02.9 Acute pharyngitis, unspecified (principal) | CPT/HCPCS: 87070; 87077 ==

== ENCOUNTER → 2019-05-13 12:24 | Outpatient (CLI) | payer OTHER, MEDICAID, SELFPAY ==
--- NOTE | 2019-05-13 | DI.MG.S_ITS ---
BILATERAL DIGITAL SCREENING MAMMOGRAM 3D/2D WITH CAD: 05/13/2019 CLINICAL: Routine screening. Family history of breast cancer. Comparison is made to exams dated: 05/03/2018 mammogram, 07/04/2016 mammogram, and 11/24/2014 mammogram - [facility]. The tissue of both breasts is extremely dense, which lowers the sensitivity of mammography. Current study was also evaluated with a Computer Aided Detection (CAD) system. No significant masses, calcifications, or other findings are seen in either breast. There has been no significant interval change. IMPRESSION: NEGATIVE There is no mammographic evidence of malignancy. A 1 year screening mammogram is recommended. This exam was interpreted at Station ID: [id number]. NOTE: For mammograms, a report in lay terms will be sent to the patient. Approximately 15% of breast malignancies will not be visualized mammographically. In the management of a palpable breast mass, a negative mammogram must not discourage biopsy of a clinically suspicious lesion. Electronically Signed By: Alfa mancera/giulia:05/13/2019 12:53:58 copy to: Allie Carter letter sent: Normal Exam ACR BI-RADS Category 1: Negative 3341F
== END ==
PROVIDERS: PCP Internal Medicine
DX: Z12.31 Encounter for screening mammogram for malignant neoplasm of breast (principal); Z80.3 Family history of malignant neoplasm of breast
CPT/HCPCS: 77063; 77067

== ENCOUNTER → 2019-07-16 07:53 | Outpatient (CLI) | payer OTHER, MEDICAID, SELFPAY ==
--- NOTE | 2019-07-16 | DI.MRI.S_ITS ---
PROCEDURE: MR ORBITS FACE NECK WO/W CON INDICATIONS: Ocular pain, left eye TECHNIQUE: Noncontrast sagittal T1 spin echo, axial FLAIR, axial gradient echo, axial diffusion and ADC acquired through the brain. Coronal STIR, thin-slice axial T1 spin echo through the orbits. After the administration of contrast, thin-slice axial and coronal T1 spin echo with fat saturation through the orbits, axial T1 spin echo with fat saturation through the brain. COMPARISON: [facility], MR, BRAIN WITHOUT CONTRAST, 04/05/2010, 13:49. [facility], CT, CT ANGIO HEAD AND NECK, 01/03/2019, 14:16. FINDINGS: Image quality: Diagnostic Orbits: In this patient with this given history, scrutiny is given to the left orbit. No masses or abnormal enhancement can be seen. Globes are symmetrical. The optic nerves are normal in size, without abnormal signal or enhancement. No retrobulbar masses or fat abnormalities. The extra-ocular muscles are normal and symmetric in appearance. Lacrimal glands are normal. Optic chiasm is normal. Periorbital soft tissues appear normal. CSF spaces: Ventricles are normal in size and shape. Basal cisterns are patent. No extra-axial fluid collections. Brain: No intracranial bleeds or mass effects. No abnormal intracranial enhancement. Mckenna-white matter interface is intact. Diffusion weighted images demonstrate no acute ischemic insults. Pituitary gland appears normal, without sellar or suprasellar masses. Brainstem appears normal. Normal intravascular flow voids are present. Skull and face: Calvarial marrow is normal in signal. Sinuses: Sinuses and mastoids are clear. IMPRESSION: Unremarkable imaging study, without an imaging explanation for patient's presenting history of left ocular pain. Dictated by: Bk Reed M.D. on 07/16/2019 at 8:44 Approved by: Bk Reed M.D. on 07/16/2019 at 8:48
== END ==
PROVIDERS: PCP Internal Medicine; Visit Provider Internal Medicine
DX: H57.12 Ocular pain, left eye (principal)
CPT/HCPCS: 70543; A9579

== ENCOUNTER → 2020-05-16 16:41 | Outpatient (CLI) | payer OTHER, MEDICAID, SELFPAY | PROVIDERS: PCP Internal Medicine; Visit Provider Nurse Practitioner | DX: R30.0 Dysuria (principal) | CPT/HCPCS: 87077; 87086; 87147 ==

== ENCOUNTER → 2020-12-16 12:29 | Outpatient (CLI) | payer OTHER, MEDICAID, SELFPAY ==
--- NOTE | 2020-12-16 12:31 | DI.MG.S_ITS ---
BILATERAL DIGITAL SCREENING MAMMOGRAM 3D/2D WITH CAD: 12/16/2020 CLINICAL: Routine screening. Family history of breast cancer. Comparison is made to exams dated: 05/13/2019 mammogram, 05/03/2018 mammogram, and 07/04/2016 mammogram - [facility]. The tissue of both breasts is extremely dense, which lowers the sensitivity of mammography. Current study was also evaluated with a Computer Aided Detection (CAD) system. No significant masses, calcifications, or other findings are seen in either breast. There has been no significant interval change. IMPRESSION: NEGATIVE There is no mammographic evidence of malignancy. A 1 year screening mammogram is recommended. This exam was interpreted at Station ID: [id number]. NOTE: For mammograms, a report in lay terms will be sent to the patient. Approximately 15% of breast malignancies will not be visualized mammographically. In the management of a palpable breast mass, a negative mammogram must not discourage biopsy of a clinically suspicious lesion. Electronically Signed By: Dm Pulliam M.D., jr/giulia:12/16/2020 14:52:06 letter sent: Normal Exam ACR BI-RADS Category 1: Negative 3341F
== END ==
PROVIDERS: PCP Internal Medicine; Referring Provider Internal Medicine; Visit Provider Internal Medicine
DX: Z12.31 Encounter for screening mammogram for malignant neoplasm of breast (principal); Z80.3 Family history of malignant neoplasm of breast
CPT/HCPCS: 77063; 77067

== ENCOUNTER → 2021-02-10 15:28 | Outpatient (CLI) | payer OTHER, MEDICAID, SELFPAY ==
[2021-02-10 15:57] LABS: COVID19 -Nasal RAPID Negative (Negative)
== END ==
PROVIDERS: PCP Internal Medicine; Visit Provider Surgery
DX: Z20.822 Contact with and (suspected) exposure to COVID-19 (principal)
CPT/HCPCS: 87635; C9803

== ENCOUNTER 2021-02-11 14:12 | Day surgery (SDC) | payer OTHER, MEDICAID, SELFPAY ==
[2021-02-11] VITALS (7 sets, daily range): BP systolic 98–118; BP diastolic 50–77; PULSE 66–89; RESP 8–16; TEMP 36.1–37.1; O2SAT 99–100; BMI 22.3
--- NOTE | 2021-02-11 14:45 | SUR.PREOP ---
With IV start - Pt nauseated, hot, pale, diaphoretic. VS 88/60, 74, 16, 98%. IV inserted and fluids running wide open. Pt status improved after 150ml of fluid. VS recheck =97/51, 71, 18, 99%.
[2021-02-11] MEDS: LACTATED RINGERS 1,000 ML 200 ML IV (15:11)
--- NOTE | 2021-02-11 15:36 | PM.HP.1 ---
History of Present Illness History of Present Illness Date Patient Seen: 02/11/21 Time Patient Seen: 15:36 Chief complaint: SCREENING COLONOSCOPY Narrative: The patient presents for colorectal sreening. They have never had any previous examination for such. No personal or family history of colon cancer. On further history denies any recent gastrointestinal symptoms. No nausea, vomiting, abdominal pain, loss of appetite, unexplained weight loss, change in bowel habits, diarrhea, constipation, melena, hematochezia, or bright red blood per rectum. Patient History Medical History Anxiety Depression (07/25/11) Dysmenorrhea (08/04/14) Migraine headache (08/04/14) Needle phobia Palpitations (07/29/04) Panic attack (06/10/14) Surgical History History of lithotripsy Status post delivery (~2005) Family & Social History Social History: household members children Tobacco & Substance use: Smoking Status Never smoker alcohol intake current alcohol intake frequency a few times a month Substance Use Type does not use Meds Home Medications and Allergies Home Medications Medication Instructions Recorded Confirmed Type ibuprofen 1 dose PO PRN PRN #0 08/10/11 02/11/21 History Women's Daily Supplement 1 cap PO DAILY 01/03/19 02/11/21 History acetaminophen 1 dose PO PRN PRN 01/03/19 02/11/21 History venlafaxine 150 mg PO QPM 01/03/19 02/11/21 History neuroboost PO DAILY 10/27/19 05/16/20 History estradiol 0.5 mg tablet 0.5 mg PO QPM #30 tab 05/06/20 02/11/21 Rx norethindrone (contraceptive) 0.35 0.35 mg PO QDAY #28 tab 05/06/20 02/11/21 Rx mg tablet Allergies Allergy/AdvReac Type Severity Reaction Status Date / Time No Known Drug Allergies Allergy Verified 02/11/21 14:20 Review of Systems Review of Systems ROS: Yes All systems reviewed with the patient and are negative except as otherwise documented Exam Vital Signs (past 8 hours): - 02/11/21 14:55 Temperature 98.2 F Pulse Rate 89 Respiratory Rate 16 Blood Pressure 118/77 Oxygen Delivery Method Room Air Narrative Exam Narrative: GENERAL-well developed adult female, no acute distress HEENT-no scleral icterus, hearing intact NECK-no JVD, trachea midline CVS- regular rate, no peripheral edema RESP-unlabored respiratory effort, no audible wheezing GI-soft, nontender nondistended MSK-no cyanosis or clubbing, extremities without deformity SKIN-warm, dry NEURO-alert and oriented, no focal deficits PYSCH-Appropriate mood and affect Assessment & Plan Assessment & Plan narrative: The patient requires colorectal screening and colonoscopy is recommended. Technical details were discussed. Risks, benefits, alternatives explained. Risks including but not limited to myocardial infarction, aspiration, bleeding, pain, missed lesion, incomplete examination, need for further radiographic studies, colonic perforation, and need for major abdominal surgery were discussed. All questions were answered to their satisfaction, and they are in agreement with this plan.
[2021-02-11] MEDS: fentaNYL 250 MCG/5 ML INJ IV (15:49)
[2021-02-11] MEDS: MIDAZOLAM 5 MG/5 ML VIAL IV (15:54)
--- NOTE | 2021-02-11 16:08 | PM.OP.ENDO ---
Operative Date/Time/Diagnoses Date of procedure: 02/11/21 Time of procedure: 16:08 Pre-op diagnosis: Screening colonoscopy Post-op diagnosis: same Procedure & Clinicians Study performed: Colonoscopy Same procedure as scheduled: Yes Indications: Screening colonoscopy Surgeon: Jake Javed Procedure Notes Procedure in detail: Medications: Conscious sedation using 6 mg IV midazolam and 150 mcg IV of fentanyl The history and physical was performed/updated and the patient is ASA class is 1. The procedure was discussed in detail with the patient. Potential risks complications including infection, bleeding, missed diagnosis, perforation, need for surgery, and were explained. Their questions were answered and informed consent was obtained. Patient was brought to the procedure room and placed standard monitoring equipment. The patient's vital signs were monitored continuously throughout the entire procedure. Prior to starting time-out was performed. The patient was placed in the left lateral recumbent position. Procedural sedation was administered. Examination began with a thorough inspection of the perianal area there was no evidence of fissures, fistulae, external hemorrhoids or cutaneous malignancy. The colonoscopy scope was then placed into the anal canal and was advanced to the cecum, which was identified by the ileocecal valve, the appendiceal orifice and the confluence of the taenia. The scope was then slowly withdrawn examining colon thoroughly in all directions, irrigating it of any residual stool. 1. No masses polyps 2. Grade 1 internal hemorrhoids The patient tolerated the procedure well. They will be discharged once criteria are met. The prep was of good/excellent quality. The withdrawl time was 6 minutes. The sedation time was 26 minutes. Specimen(s): none sent Complications: none Impression: Normal colonoscopy Post-procedure Recommendations: Colonscopy in 10 years Disposition: same day surgery
== END 2021-02-11 16:43 | disposition home or self-care (01) ==
PROVIDERS: PCP Internal Medicine; Referring Provider Surgery; Visit Provider Surgery
PROC: 0DJD8ZZ Inspection of Lower Intestinal Tract, Via Natural or Artificial Opening Endoscopic (ICD-10-PCS; CPT 45378; principal; 2021-02-11 15:15)
DX: Z12.11 Encounter for screening for malignant neoplasm of colon (principal); K64.0 First degree hemorrhoids
CPT/HCPCS: 45378; 99152; J2250; J3010

== ENCOUNTER → 2022-02-24 09:14 | Outpatient (CLI) | payer OTHER, MEDICAID, SELFPAY ==
--- NOTE | 2022-02-24 | DI.MG.S_ITS ---
BILATERAL DIGITAL SCREENING MAMMOGRAM 3D/2D WITH CAD: 02/24/2022 CLINICAL: Routine screening. Family history of breast cancer. Comparison is made to exams dated: 12/16/2020 mammogram, 05/13/2019 mammogram, and 05/03/2018 mammogram - [facility]. The tissue of both breasts is heterogeneously dense. This may lower the sensitivity of mammography. Current study was also evaluated with a Computer Aided Detection (CAD) system. There is a possible 0.7 cm oval equal density focal asymmetry with an obscured margin in the left breast at 12 o'clock posterior depth. This is more prominent and increased in size. No other significant masses, calcifications, or other findings are seen in either breast. IMPRESSION: INCOMPLETE: NEEDS ADDITIONAL IMAGING EVALUATION The possible 0.7 cm oval equal density focal asymmetry in the left breast is indeterminate. Additional views with possible ultrasound are recommended. This exam was interpreted at Station ID: [id number]. NOTE: For mammograms, a report in lay terms will be sent to the patient. Approximately 15% of breast malignancies will not be visualized mammographically. In the management of a palpable breast mass, a negative mammogram must not discourage biopsy of a clinically suspicious lesion. Electronically Signed By: Alfa Thrasher M.D. aty/:02/24/2022 13:41:00 letter sent: Additional Imaging Needed ACR BI-RADS Category 0: Incomplete 3340F
== END ==
PROVIDERS: PCP Internal Medicine; Referring Provider Internal Medicine; Visit Provider Internal Medicine
DX: Z12.31 Encounter for screening mammogram for malignant neoplasm of breast (principal)
CPT/HCPCS: 77063; 77067

== ENCOUNTER → 2022-04-12 09:41 | Outpatient (CLI) | payer OTHER, MEDICAID, SELFPAY ==
--- NOTE | 2022-04-12 | DI.US.S_ITS ---
LIMITED ULTRASOUND OF LEFT BREAST: 04/12/2022 CLINICAL: Patient returns today to evaluate a focal asymmetry in the left breast. Comparison is made to exams dated: 04/12/2022 mammogram, 02/24/2022 mammogram, 12/16/2020 mammogram, 05/13/2019 mammogram, and 05/03/2018 [facility]. Color flow and real-time ultrasound of the left breast 1 o'clock region were performed. Mckenna scale images of the real-time examination were reviewed. There is a benign 0.8 cm x 0.8 cm x 0.5 cm oval simple cyst in the left breast at 1 o'clock posterior depth 8 cm from the nipple. This correlates with mammography findings. Color flow imaging demonstrates that there is no vascularity present. IMPRESSION: BENIGN There is no sonographic evidence of malignancy. The 0.8 cm simple cyst in the left breast is benign. A 1 year screening mammogram is recommended. Exam findings were conveyed to the patient. This exam was interpreted at Station ID: [id number]. Electronically Signed By: Ac Forman M.D. [facility] [place]/:04/12/2022 10:31:48 Entry: - 04/13/2022 10:03:23 letter sent: Normal Exam Ultrasound BI-RADS: 2 Benign
--- NOTE | 2022-04-12 | DI.MG.S_ITS ---
UNILATERAL LEFT DIGITAL DIAGNOSTIC MAMMOGRAM 3D/2D WITH ADDITIONAL VIEWS: 04/12/2022 CLINICAL: Additional evaluation requested from prior study. Comparison is made to exams dated: 02/24/2022 mammogram, 12/16/2020 mammogram, 05/13/2019 mammogram, 05/03/2018 ultrasound, and 05/03/2018 mammogram - [facility]. The tissue of left breast is heterogeneously dense. This may lower the sensitivity of mammography. There is a 0.7 cm oval mass in the left breast at 1 o'clock posterior depth. This is seen in additional views. No other significant masses or calcifications are seen in the breast. IMPRESSION: INCOMPLETE: NEEDS ADDITIONAL IMAGING EVALUATION The 0.7 cm oval mass in the left breast is indeterminate. A targeted ultrasound is recommended and will immediately follow. Based on Tyrer-Cuzick model (a risk assessment model), the patient's lifetime risk is 22.9% and her 10 year risk is 6.9%. If a patient has an elevated risk, a more comprehensive evaluation should be considered and/or a referral to a genetic counselor. The [employer], [employer], and NCCN Guidelines advise the consideration of Breast MRI as an adjunct to screening mammography in patients whose Lifetime risk to develop breast cancer is 20% or higher. This exam was interpreted at Station ID: [id number]. NOTE: For mammograms, a report in lay terms will be sent to the patient. Approximately 15% of breast malignancies will not be visualized mammographically. In the management of a palpable breast mass, a negative mammogram must not discourage biopsy of a clinically suspicious lesion. Electronically Signed By: Ac Forman M.D. [facility]/:04/12/2022 10:29:40 ACR BI-RADS Category 0: Incomplete [id number]
== END ==
PROVIDERS: PCP Internal Medicine; Referring Provider Internal Medicine; Visit Provider Internal Medicine
DX: R92.8 Other abnormal and inconclusive findings on diagnostic imaging of breast (principal); N60.02 Solitary cyst of left breast
CPT/HCPCS: 76642; 77065; G0279

== ENCOUNTER → 2023-10-10 09:08 | Outpatient (CLI) | payer OTHER, MEDICAID, SELFPAY ==
--- NOTE | 2023-10-10 09:10 | DI.MG.S_ITS ---
BILATERAL DIGITAL DIAGNOSTIC MAMMOGRAM 3D/2D: 10/10/2023 CLINICAL: Breast pain. Comparison is made to exams dated: 02/24/2022 mammogram, 12/16/2020 mammogram, and 05/13/2019 mammogram - [facility]. Both breasts are heterogeneously dense, which may obscure small masses (category c / 51-75% glandular tissue). No significant masses, calcifications, or other findings are seen in either breast. IMPRESSION: NEGATIVE There is no abnormality seen in the bilateral breast to correspond with the areas of clinical concern described as diffuse pain, however, recommend clinical follow up for persistent or worsening symptoms, or development of any clinically suspicious findings. There is no mammographic evidence of malignancy. A 1 year screening mammogram is recommended. Findings and recommendations were conveyed to the patient during today's evaluation. Based on Tyrer-Cuzick model (a risk assessment model), the patient's lifetime risk is 22.7% and her 10 year risk is 7.2%. If a patient has an elevated risk, a more comprehensive evaluation should be considered and/or a referral to a genetic counselor. The [employer], [employer], and NCCN Guidelines advise the consideration of Breast MRI as an adjunct to screening mammography in patients whose Lifetime risk to develop breast cancer is 20% or higher. This exam was interpreted at Station ID: [id number]. NOTE: For mammograms, a report in lay terms will be sent to the patient. Approximately 15% of breast malignancies will not be visualized mammographically. In the management of a palpable breast mass, a negative mammogram must not discourage biopsy of a clinically suspicious lesion. Electronically Signed By: Alfa Thrasher M.D. aty/:10/10/2023 10:03:58 letter sent: Clinical Evaluation ACR BI-RADS Category 1: Negative [id number]
== END ==
LOC: MAMMO 09:09
PROVIDERS: PCP Internal Medicine; Referring Provider Internal Medicine; Visit Provider Internal Medicine
DX: R92.8 Other abnormal and inconclusive findings on diagnostic imaging of breast (principal); N64.4 Mastodynia; N63.20 Unspecified lump in the left breast, unspecified quadrant
CPT/HCPCS: 77066; G0279

== ENCOUNTER 2024-04-02 09:00 | Outpatient (RCR) | payer OTHER, MEDICAID, SELFPAY ==
--- NOTE | 2024-01-01 17:19 | PT.OPPOC ---
Physical, Occupational & Speech Therapy At [facility] Current Diagnoses Gastro-esophageal reflux disease without esophagitis (01/01/24) Pain in right shoulder (01/01/24) Abnormal posture (01/01/24) Weakness (01/01/24) Visit Care Team Role Provider Type LISSETT [place] Attending Provider [employer] Representative Family Provider Primary Care Provider Referring Provider Specialty: Family Practice Address: [address] [place] [address], [facility] [place], [facility] Email: Plan Of Care PT-OP-T Assessment and Plan Start: 12/28/23 18:14 Freq: Status: Active Protocol: Document 01/01/24 08:16 [facility] (Rec: 01/01/24 09:12 [facility] [id number]) Physical Therapy Assessment Rehab Potential Rehabilitation Potential Good Evaluation Complexity Number of Personal Factors/Comorbidities 1-2 Number of Body Systems Impaired 4 or More Clinical Presentation at Evaluation Evolving Impairments Impairments Activity Tolerance,Functional Activities,Functional Mobility ,Pain,Posture,ROM,Soft Tissue Mobility,Strength Goals ROM Short Term Goal (STG) Pt will improve flex and abd to at least 135 without pain STG Duration 02/13 Long-Term Goal (LTG) Pt will have full RUE (as compared to L) without pain in order to allow dong daily activities w/o inc pain. LTG Duration 03/25 activities Long-Term Goal (LTG) Pt will report no pain w/ dressing, home tasks or work tasks greater than 1/10. LTG Duration 03/25 strength Short Term Goal (STG) Pt will be indep with HEP STG Duration 02/06 [place] Farmer Goal (LTG) Pt will score at least 4/5 on EFT and 4+/5 on all RUE MMT in order to show improved strength in order to do typical work activities w/o pain. LTG Duration 03/25 Quick Dash Impairment 59.1 Short Term Goal (STG) Pt will improve quick dash score to no higher than 40 to show improved functional ability. STG Duration 02/11 Long-Term Goal (LTG) Pt will improve quick dash score to no higher than 10 to show improved functional ability. LTG Duration 03/25 Assessment Summary Assessment Pt presents w/signficiant flare up w/inc pain of R shoulder pain which is now limiting her in ADLs and work related activities d/t pain. Based on s/s and testing, appears positive for impingement syndrome and/or tendonosis of supraspinatus. She has impaired movement mechanics of R shoulder and dec ROM and strength d/t pain. She has signficant postural changes that impair positioning of R shoulder which likely relates to pain and impaired movement mechanics. She would benefit from skilled PT to address these deficits to return her to typical function w/o inc pain. Physical Therapy Plan Frequency and Duration Frequency of Treatment 1-2x/wk Duration of treatment (weeks) 12 Plan of Care Start Date 01/01/24 Plan of Care End Date 03/25/24 Therapeutic Interventions Therapeutic Interventions Home Exercise Program,Joint Mobilizations,Manual Therapy, Neuromuscular Re-education, Patient/Caregiver Education, Self-Care/Home Management,Soft Tissue Mobilization,Taping, Therapeutic Activities, Therapeutic Exercises Modalities Cold Pack/Ice Massage,Electric Stimulation,Hot Packs, Infrared Therapy,Iontophoresis ,Ultrasound Next Visit Focus/Plan Next Note Type Treatment Note Next Visit Plan review exercises, try pulleys, isometric ER/flex/abd,if able tband ER manual: work on upper tspine, rib mobility, ACJ, SCJ, GHJ mobs Plan of Care Dates Plan of Care Start Date 01/01/24 Plan of Care End Date 03/25/24 Electronically Signed by: Bianca Baker, PT 01/02/24 [id number] If you are in agreement with this Plan of Care, please return a signed and dated copy. I have reviewed this Plan of Care and certify that the skilled therapy services above are required to meet the patient?s needs. Physician Signature Date Printed Name and Credentials Clinical Instructor Signature Printed Name and Credentials
--- NOTE | 2024-01-01 17:19 | PT.OIE ---
Current Diagnoses Gastro-esophageal reflux disease without esophagitis (01/01/24) Pain in right shoulder (01/01/24) Abnormal posture (01/01/24) Weakness (01/01/24) Past Medical History (Last Reviewed 02/11/21 @ 15:36 by Jake Javed MD) Anxiety Depression (07/25/11) Dysmenorrhea (08/04/14) Migraine headache (08/04/14) Needle phobia Palpitations (07/29/04) Panic attack (06/10/14) Past Surgical History (Last Reviewed 02/11/21 @ 15:36 by Jake Javed MD) History of lithotripsy Status post delivery (~2005) Visit Care Team Role Provider Type LISSETT [place] Attending Provider Advanced Store Group Manager Family Provider Primary Care Provider Referring Provider Specialty: Family Practice Address: [address] [place] [address], [id number] Email: [email or web address] Initial Evaluation PT-OP-A Visit Information Start: 12/28/23 18:14 Freq: Status: Active Protocol: Document 01/01/24 08:16 [facility] (Rec: 01/01/24 09:12 [facility] [id number]) Out-Patient Physical Therapy Visit Information Visit Information Visit Type Initial Evaluation Visit Start Time 08:17 Visit Stop Time 09:00 Visit Number 1 Number of MEDICAL SECRETARY RECEPTIONIST Visits 0 PT-OP-B Current Condition Start: 12/28/23 18:14 Freq: Status: Active Protocol: Document 01/01/24 08:16 [facility] (Rec: 01/01/24 09:12 [facility] [id number]) Current Condition History of Current Condition Onset Date 30 years w/worsening 2 months ago Current Complaints R shoulder History of Current Condition Pt reports R shoulder pain that started 30 years ago and she had a [employer] business. She saw an ortho that told her ot get out of the business and she hired [employer] but worked 20 years more. It has always given her a lot of trouble selena when cold . Took dgt to self defense class 2 months ago and was HAbd and hit the rubber chela. She felt something happen and it felt like it disconnected from my arm. Since then, it has had different pains. She can't reach behind or laying on the shoulder. WHen was working out, did feel like shoulder was stronger. DId have injections in the past 20 years ago when saw ortho. 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 Pt reports stomach ache by 2 w /ibuprofen. Has been taking it since self defense class. Pt takes 800mg at night and first thing in the AM. She takes some again when it seems to wear off. Prior Treatments and Tests PT for neck about 10 years ago ; years ago saw Dr. Valentine- massage helped Treatment Goals Patient/Caregiver Goals Want to get stronger, be able to take trash out at studio, be able to dress and do job w/ o inc pain;not have to ask for help w/activities PT-OP-C Subjective Start: 12/28/23 18:14 Freq: Status: Active Protocol: Document 01/01/24 08:16 [facility] (Rec: 01/01/24 09:12 [facility] [id number]) Patient Questionnaires Quick Dash- Upper Extremity Quick Dash UE Score 59.1 OP-PT Pain Assessment Location R shoulder Pain Location Details R shoulder and down arm and into scap Scale Used best:2 worst:8 Description Aching,Shooting,Tightness,With Movement Frequency Constant Radiating Location ant clavicle Variations/Patterns shoots down post elbow to med wrist Pain Aggravating Factors ADL's Other Pain Aggravating Factors laying on it, reaching behind, overhead reach, rolling soft wax Pain Alleviating Factors Cold,Heat Other Pain Alleviating Factors ibuprofen (daily-mult times) PT-OP-F Manual Assessment Start: 12/28/23 18:14 Freq: Status: Active Protocol: Document 01/01/24 08:16 [facility] (Rec: 01/01/24 09:12 [facility] [id number]) Manual Assessments Soft Tissue Assessment Soft Tissue Mobility Assessment tightness/tenderness (scalenes , UT, LS, infra, teres, rhomboids, traps, pecs, biceps tendon) Joint Mobility Assessment Joint Mobility Assessment 1st rib elevated R & clavicle at SC elevated and ant PT-OP-J Posture/Palpation/Skin Start: 12/28/23 18:14 Freq: Status: Active Protocol: Document 01/01/24 08:16 [facility] (Rec: 01/01/24 09:12 [facility] [id number]) Posture Evaluation [facility] Postural Classification System Tori Postural Classifications Posterior/Anterior Elbow Flexion Test 1 Comments Posture Comments torso rot R; calvicle more pronounced, R scap: abd, ant tipped, protracted, humerus ant in glenoid, fwd head, inc kyphosis PT-OP-K Range of Motion Start: 12/28/23 18:14 Freq: Status: Active Protocol: Document 01/01/24 08:16 [facility] (Rec: 01/01/24 09:12 [facility] [id number]) Shoulder Goniometric Range of Motion Shoulder Right Active Flexion 127 Extension 70 Abduction 125 External Rotation at 0 degrees Abduction 62 Internal Rotation Behind Back (text) T10 Comments pain w/flex, ext, ER IR Left Active Flexion 158 Extension 70 Abduction 180 External Rotation at 90 degrees 97 Abduction External Rotation at 0 degrees Abduction 83 Internal Rotation Behind Back (text) T5 PT-OP-L Special Tests Start: 12/28/23 18:14 Freq: Status: Active Protocol: Document 01/01/24 08:16 [facility] (Rec: 01/01/24 09:12 [facility] [id number]) Special Tests Shoulder Special Tests [place] Test Comments neg Empty Can Comments post Sulcus Test Results neg AC Joint Compression Comments neg Mike Wilberto Impingement Comments pos Yergason's Biceps Comments neg Speed's Biceps Comments pos Neer Impingement Comments pos PT-OP-M Strength Start: 12/28/23 18:14 Freq: Status: Active Protocol: Document 01/01/24 08:16 [facility] (Rec: 01/01/24 09:12 [facility] [id number]) Shoulder Strength Shoulder Manual Muscle Testing Right Flexion 3+ Fair+ Extension 3+ Fair+ Abduction (C5) 3+ Fair+ External Rotation 3+ Fair+ Internal Rotation 4+ Good+ Comments pain Left Flexion 4+ Good+ Extension 5 Normal Abduction (C5) 4+ Good+ External Rotation 5 Normal Internal Rotation 4+ Good+ Elbow/Forearm Strength Elbow and Forearm Manual Muscle Testing Right Flexion (C6) 4+ Good+ Supination 5 Normal Left Flexion (C6) 5 Normal Supination 5 Normal PT-OP-Q Treatments Start: 12/28/23 18:14 Freq: Status: Active Protocol: Document 01/01/24 08:16 [facility] (Rec: 01/01/24 09:12 [facility] [id number]) Therapeutic Exercises Supine Exercises flex Supine Exercise Name chess press to flex Side right Equipment Used cane Reps/Minutes 10 Standing Exercises ext Standing Exercise Name rows Side bilateral Equipment Used L1 Reps/Minutes 10 ER Standing Exercise Name AAROM Side right Equipment Used cane Reps/Minutes 10 Self-Care/Home Management Treatment Education Other Education 15 min: edu on anatomy of shoulder w/pictures used of rotator mm. Discussed less likely main issue is biceps d/ t testing results (no pain w/ flex or supination of elbow). edu on impingement syndrome and how her movement mechancis are causing issues. PT-OP-T Assessment and Plan Start: 12/28/23 18:14 Freq: Status: Active Protocol: Document 01/01/24 08:16 [facility] (Rec: 01/01/24 09:12 [facility] [id number]) Physical Therapy Assessment Rehab Potential Rehabilitation Potential Good Evaluation Complexity Number of Personal Factors/Comorbidities 1-2 Number of Body Systems Impaired 4 or More Clinical Presentation at Evaluation Evolving Impairments Impairments Activity Tolerance,Functional Activities,Functional Mobility ,Pain,Posture,ROM,Soft Tissue Mobility,Strength Goals ROM Short Term Goal (STG) Pt will improve flex and abd to at least 135 without pain STG Duration 02/13 Residential Goal (LTG) Pt will have full RUE (as compared to L) without pain in order to allow dong daily activities w/o inc pain. LTG Duration 03/25 activities Yarn Wrapper Goal (LTG) Pt will report no pain w/ dressing, home tasks or work tasks greater than 1/10. LTG Duration 03/25 strength Short Term Goal (STG) Pt will be indep with HEP STG Duration 02/06 Residential Goal (LTG) Pt will score at least 4/5 on EFT and 4+/5 on all RUE MMT in order to show improved strength in order to do typical work activities w/o pain. LTG Duration 03/25 Quick Dash Impairment 59.1 Short Term Goal (STG) Pt will improve quick dash score to no higher than 40 to show improved functional ability. STG Duration 02/11 Residential Goal (LTG) Pt will improve quick dash score to no higher than 10 to show improved functional ability. LTG Duration 03/25 Assessment Summary Assessment Pt presents w/signficiant flare up w/inc pain of R shoulder pain which is now limiting her in ADLs and work related activities d/t pain. Based on s/s and testing, appears positive for impingement syndrome and/or tendonosis of supraspinatus. She has impaired movement mechanics of R shoulder and dec ROM and strength d/t pain. She has signficant postural changes that impair positioning of R shoulder which likely relates to pain and impaired movement mechanics. She would benefit from skilled PT to address these deficits to return her to typical function w/o inc pain. Physical Therapy Plan Frequency and Duration Frequency of Treatment 1-2x/wk Duration of treatment (weeks) 12 Plan of Care Start Date 01/01/24 Plan of Care End Date 03/25/24 Therapeutic Interventions Therapeutic Interventions Home Exercise Program,Joint Mobilizations,Manual Therapy, Neuromuscular Re-education, Patient/Caregiver Education, Self-Care/Home Management,Soft Tissue Mobilization,Taping, Therapeutic Activities, Therapeutic Exercises Modalities Cold Pack/Ice Massage,Electric Stimulation,Hot Packs, Infrared Therapy,Iontophoresis ,Ultrasound Next Visit Focus/Plan Next Note Type Treatment Note Next Visit Plan review exercises, try pulleys, isometric ER/flex/abd,if able tband ER manual: work on upper tspine, rib mobility, ACJ, SCJ, GHJ mobs
--- NOTE | 2024-01-03 14:46 | PT.OTN ---
Current Diagnoses Gastro-esophageal reflux disease without esophagitis (01/03/24) Pain in right shoulder (01/03/24) Abnormal posture (01/03/24) Weakness (01/03/24) Physical Therapy Treatment Note PT-OP-A Visit Information Start: 12/28/23 18:14 Freq: Status: Active Protocol: Document 01/03/24 13:48 [facility] (Rec: 01/03/24 14:45 [facility] [id number]) Out-Patient Physical Therapy Visit Information Visit Information Visit Type Treatment Note Visit Note max 24 visits/yr Visit Start Time 13:49 Visit Stop Time 14:30 Visit Number 2 Number of DIRECTOR MATERNAL CHILD Visits 0 PT-OP-B Current Condition Start: 12/28/23 18:14 Freq: Status: Active Protocol: Document 01/01/24 08:16 [facility] (Rec: 01/01/24 09:12 [facility] [id number]) Current Condition History of Current Condition Onset Date 30 years w/worsening 2 months ago Current Complaints R shoulder History of Current Condition Pt reports R shoulder pain that started 30 years ago and she had a [employer] business. She saw an ortho that told her ot get out of the business and she hired [employer] but worked 20 years more. It has always given her a lot of trouble selena when cold . Took dgt to [employer] class 2 months ago and was HAbd and hit the rubber chela. She felt something happen and it felt like it disconnected from my arm. Since then, it has had different pains. She can't reach behind or laying on the shoulder. WHen was working out, did feel like shoulder was stronger. DId have injections in the past 20 years ago when saw ortho. 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 Pt reports stomach ache by 2 w /ibuprofen. Has been taking it since [employer] class. Pt takes 800mg at night and first thing in the AM. She takes some again when it seems to wear off. Prior Treatments and Tests PT for neck about 10 years ago ; years ago saw Dr. Valentine- massage helped Treatment Goals Patient/Caregiver Goals Want to get stronger, be able to take trash out at studio, be able to dress and do job w/ o inc pain;not have to ask for help w/activities PT-OP-C Subjective Start: 12/28/23 18:14 Freq: Status: Active Protocol: Document 01/03/24 13:48 [facility] (Rec: 01/03/24 14:45 [id number]-PT Subjective Patient Comments Patient Comments compliance w/exercises and feels like they are already helping PT-OP-F Manual Assessment Start: 12/28/23 18:14 Freq: Status: Active Protocol: Document 01/01/24 08:16 [facility] (Rec: 01/01/24 09:12 [id number] Manual Assessments Soft Tissue Assessment Soft Tissue Mobility Assessment tightness/tenderness (scalenes , UT, LS, infra, teres, rhomboids, traps, pecs, biceps tendon) Joint Mobility Assessment Joint Mobility Assessment 1st rib elevated R & clavicle at SC elevated and ant PT-OP-J Posture/Palpation/Skin Start: 12/28/23 18:14 Freq: Status: Active Protocol: Document 01/01/24 08:16 [facility] (Rec: 01/01/24 09:12 [id number] Posture Evaluation [facility] Postural Classification System [facility] Postural Classifications Posterior/Anterior Elbow Flexion Test 1 Comments Posture Comments torso rot R; calvicle more pronounced, R scap: abd, ant tipped, protracted, humerus ant in glenoid, fwd head, inc kyphosis PT-OP-K Range of Motion Start: 12/28/23 18:14 Freq: Status: Active Protocol: Document 01/01/24 08:16 [facility] (Rec: 01/01/24 09:12 [id number] Shoulder Goniometric Range of Motion Shoulder Right Active Flexion 127 Extension 70 Abduction 125 External Rotation at 0 degrees Abduction 62 Internal Rotation Behind Back (text) T10 Comments pain w/flex, ext, ER IR Left Active Flexion 158 Extension 70 Abduction 180 External Rotation at 90 degrees 97 Abduction External Rotation at 0 degrees Abduction 83 Internal Rotation Behind Back (text) T5 PT-OP-L Special Tests Start: 12/28/23 18:14 Freq: Status: Active Protocol: Document 01/01/24 08:16 [facility] (Rec: 01/01/24 09:12 [facility] [id number]) Special Tests Shoulder Special Tests [place] Test Comments neg Empty Can Comments post Sulcus Test Results neg AC Joint Compression Comments neg Mike Wilberto Impingement Comments pos Yergason's Biceps Comments neg Speed's Biceps Comments pos Neer Impingement Comments pos PT-OP-M Strength Start: 12/28/23 18:14 Freq: Status: Active Protocol: Document 01/01/24 08:16 [facility] (Rec: 01/01/24 09:12 [facility] [id number]) Shoulder Strength Shoulder Manual Muscle Testing Right Flexion 3+ Fair+ Extension 3+ Fair+ Abduction (C5) 3+ Fair+ External Rotation 3+ Fair+ Internal Rotation 4+ Good+ Comments pain Left Flexion 4+ Good+ Extension 5 Normal Abduction (C5) 4+ Good+ External Rotation 5 Normal Internal Rotation 4+ Good+ Elbow/Forearm Strength Elbow and Forearm Manual Muscle Testing Right Flexion (C6) 4+ Good+ Supination 5 Normal Left Flexion (C6) 5 Normal Supination 5 Normal PT-OP-Q Treatments Start: 12/28/23 18:14 Freq: Status: Active Protocol: Document 01/03/24 13:48 [facility] (Rec: 01/03/24 14:45 [facility] [id number]) Therapeutic Exercises Supine Exercises flex Supine Exercise Name chess press to flex Side right Equipment Used cane Reps/Minutes 10 Comments able after manual to do comfortably Sitting Exercises pully Sitting Exercise Name flex, scaption Side right Reps/Minutes 8 ea Comments AAROM Standing Exercises external rotation Side right Equipment Used orange Reps/Minutes 10 ext Standing Exercise Name rows Side bilateral Equipment Used L1 Reps/Minutes 10 ER Standing Exercise Name AAROM Side right Equipment Used cane Reps/Minutes 5 Comments good form and improved range Manual Therapy Treatment Soft Tissue Mobilization sup Body Location R UT, LS, Scalenes Mobilization Type Rolling Intensity/Depth Moderate Comments s/l and seated post Body Location R lat, rhomboids Mobilization Type Rolling Intensity/Depth Moderate Body Position Sidelying Joint Mobilizations GH Joint R post translation & lat gapping FM SC Joint R distraction & inf FM AC Joint R ant clavicle FM ribs Comments R PA rib 1-3; caudal rib 1 FM thoracic Comments PA T1-3 FM PT-OP-T Assessment and Plan Start: 12/28/23 18:14 Freq: Status: Active Protocol: Document 01/03/24 13:48 [facility] (Rec: 01/03/24 14:45 [facility] [id number]) Physical Therapy Assessment Goals ROM Short Term Goal (STG) Pt will improve flex and abd to at least 135 without pain STG Duration 02/13 Intermediate Goal (LTG) Pt will have full RUE (as compared to L) without pain in order to allow dong daily activities w/o inc pain. LTG Duration 03/25 activities Wrapper Layer Goal (LTG) Pt will report no pain w/ dressing, home tasks or work tasks greater than 1/10. LTG Duration 03/25 strength Short Term Goal (STG) Pt will be indep with HEP STG Duration 02/06 Intermediate Goal (LTG) Pt will score at least 4/5 on EFT and 4+/5 on all RUE MMT in order to show improved strength in order to do typical work activities w/o pain. LTG Duration 03/25 Quick Dash Impairment 59.1 Short Term Goal (STG) Pt will improve quick dash score to no higher than 40 to show improved functional ability. STG Duration 02/11 Wrapper Layer Goal (LTG) Pt will improve quick dash score to no higher than 10 to show improved functional ability. LTG Duration 03/25 Assessment Summary Assessment pt had improved R shoulder mobility after manual treatment. Today presented w/ improved ER and tolerated resisted ER. Physical Therapy Plan Frequency and Duration Frequency of Treatment 1-2x/wk Duration of treatment (weeks) 12 Plan of Care Start Date 01/01/24 Plan of Care End Date 03/25/24 Next Visit Focus/Plan Next Note Type Treatment Note Next Visit Plan review exercises, try pulleys, isometric flex/abd manual: work on upper tspine, rib mobility, ACJ, SCJ, GHJ mobs
--- NOTE | 2024-01-10 16:36 | PT.OTN ---
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 She saw an ortho that told her ot get out of the business and she hired [employer] but worked 20 years more. It has always given her a lot of trouble selena when cold . Took dgt to [employer] class 2 months ago and was HAbd and hit the rubber chela. She felt something happen and it felt like it disconnected from my arm. Since then, it has had different pains. She can't reach behind or laying on the shoulder. WHen was working out, did feel like shoulder was stronger. DId have injections in the past 20 years ago when saw ortho. 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 Pt reports stomach ache by 2 w /ibuprofen. Has been taking it since [employer] class. Pt takes 800mg at night and first thing in the AM. She takes some again when it seems to wear off. Prior Treatments and Tests PT for neck about 10 years ago ; years ago saw Dr. Valentine- massage helped Treatment Goals Patient/Caregiver Goals Want to get stronger, be able to take trash out at studio, be able to dress and do job w/ o inc pain;not have to ask for help w/activities PT-OP-C Subjective Start: 12/28/23 18:14 Freq: Status: Active Protocol: Document 01/10/24 12:56 AB (Rec: 01/10/24 14:33 AB [id number]) OP-PT Subjective Patient Comments Patient Comments Patient reports she is worse, UE is popping a lot. AROM right shoulder flexion 55 deg start of session PT-OP-F Manual Assessment Start: 12/28/23 18:14 Freq: Status: Active Protocol: Document 01/01/24 08:16 [facility] (Rec: 01/01/24 09:12 [facility] [id number]) Manual Assessments Soft Tissue Assessment Soft Tissue Mobility Assessment tightness/tenderness (scalenes , UT, LS, infra, teres, rhomboids, traps, pecs, biceps tendon) Joint Mobility Assessment Joint Mobility Assessment 1st rib elevated R & clavicle at SC elevated and ant PT-OP-J Posture/Palpation/Skin Start: 12/28/23 18:14 Freq: Status: Active Protocol: Document 01/01/24 08:16 [facility] (Rec: 01/01/24 09:12 [facility] [id number]) Posture Evaluation [facility] Postural Classification System [facility] Postural Classifications Posterior/Anterior Elbow Flexion Test 1 Comments Posture Comments torso rot R; calvicle more pronounced, R scap: abd, ant tipped, protracted, humerus ant in glenoid, fwd head, inc kyphosis PT-OP-K Range of Motion Start: 12/28/23 18:14 Freq: Status: Active Protocol: Document 01/01/24 08:16 [facility] (Rec: 01/01/24 09:12 [facility] [id number]) Shoulder Goniometric Range of Motion Shoulder Right Active Flexion 127 Extension 70 Abduction 125 External Rotation at 0 degrees Abduction 62 Internal Rotation Behind Back (text) T10 Comments pain w/flex, ext, ER IR Left Active Flexion 158 Extension 70 Abduction 180 External Rotation at 90 degrees 97 Abduction External Rotation at 0 degrees Abduction 83 Internal Rotation Behind Back (text) T5 PT-OP-L Special Tests Start: 12/28/23 18:14 Freq: Status: Active Protocol: Document 01/01/24 08:16 [facility] (Rec: 01/01/24 09:12 [facility] [id number]) Special Tests Shoulder Special Tests [place] Test Comments neg Empty Can Comments post Sulcus Test Results neg AC Joint Compression Comments neg Mike Wilberto Impingement Comments pos Jose Crgason's Biceps Comments neg Speed's Biceps Comments pos Neer Impingement Comments pos PT-OP-M Strength Start: 12/28/23 18:14 Freq: Status: Active Protocol: Document 01/01/24 08:16 [facility] (Rec: 01/01/24 09:12 [facility] [id number]) Shoulder Strength Shoulder Manual Muscle Testing Right Flexion 3+ Fair+ Extension 3+ Fair+ Abduction (C5) 3+ Fair+ External Rotation 3+ Fair+ Internal Rotation 4+ Good+ Comments pain Left Flexion 4+ Good+ Extension 5 Normal Abduction (C5) 4+ Good+ External Rotation 5 Normal Internal Rotation 4+ Good+ Elbow/Forearm Strength Elbow and Forearm Manual Muscle Testing Right Flexion (C6) 4+ Good+ Supination 5 Normal Left Flexion (C6) 5 Normal Supination 5 Normal PT-OP-Q Treatments Start: 12/28/23 18:14 Freq: Status: Active Protocol: Document 01/10/24 12:56 AB (Rec: 01/10/24 14:33 AB [id number]) Therapeutic Exercises Supine Exercises flex Supine Exercise Name overhead Equipment Used hands clasped Reps/Minutes X5 with 10 second hold Sidelying Exercises sidelying shoulder abduction Side right Reps/Minutes X1 Comments not aries sidelying shoulder ER Side right Reps/Minutes X10 Sitting Exercises pully Sitting Exercise Name scaption Reps/Minutes one minute Standing Exercises isometric shoulder abduction Side right Reps/Minutes X10 Comments verbal and visual cues isometric shoulder flexion Side right Reps/Minutes X10 Comments verbal and visual cues wall slide flexion Side right Reps/Minutes X10 Comments verbal cues to keep pressure on wall Manual Therapy Treatment Soft Tissue Mobilization right post cuff and periscapular muscles Mobilization Type Cross-Friction,Rolling Intensity/Depth Moderate Body Position Sidelying right pec Body Location right pec Mobilization Type Cross-Friction,Rolling Intensity/Depth Moderate Body Position Hooklying Joint Mobilizations scapular mobilization Joint right scapula Direction into depression and adduction Grade IV Body Position Sidelying Reps/Duration X10 each GH Joint inf and AP right shoulder Grade IV Body Position Hooklying Reps/Duration X10 SC Joint inf right Grade III Body Position Hooklying Reps/Duration X10 AC Joint right at clavicle Direction inf Grade III Body Position Hooklying Reps/Duration X10 Taping right shoulder Treatment Focus for posture and unloading UT, levator scap Type of Tape Kinesiotape PT-OP-T Assessment and Plan Start: 12/28/23 18:14 Freq: Status: Active Protocol: Document 01/10/24 12:56 AB (Rec: 01/10/24 14:33 AB [id number]) Physical Therapy Assessment Goals ROM Short Term Goal (STG) Pt will improve flex and abd to at least 135 without pain STG Duration 02/13 Caisson Worker Goal (LTG) Pt will have full RUE (as compared to L) without pain in order to allow dong daily activities w/o inc pain. LTG Duration 03/25 activities Fdc Goal (LTG) Pt will report no pain w/ dressing, home tasks or work tasks greater than 1/10. LTG Duration 03/25 strength Short Term Goal (STG) Pt will be indep with HEP STG Duration 02/06 Caisson Worker Goal (LTG) Pt will score at least 4/5 on EFT and 4+/5 on all RUE MMT in order to show improved strength in order to do typical work activities w/o pain. LTG Duration 03/25 Quick Dash Impairment 59.1 Short Term Goal (STG) Pt will improve quick dash score to no higher than 40 to show improved functional ability. STG Duration 02/11 Fdc Goal (LTG) Pt will improve quick dash score to no higher than 10 to show improved functional ability. LTG Duration 03/25 Assessment Summary Assessment Patient with 145 deg AAROM right shoulder flexion in supine during session, 74 deg AROM right shoulder flexion post exercise and manual therapy. Patient reports the shoulder feels pretty good end of session. Physical Therapy Plan Frequency and Duration Frequency of Treatment 1-2x/wk Duration of treatment (weeks) 12 Plan of Care Start Date 01/01/24 Plan of Care End Date 03/25/24 Next Visit Focus/Plan Next Note Type Treatment Note Next Visit Plan review exercises, try pulleys, manual: work on upper tspine, rib mobility, ACJ, SCJ, GHJ mobs, Assess tolerance to tape
--- NOTE | 2024-01-12 16:09 | PT.OTN ---
Current Diagnoses Gastro-esophageal reflux disease without esophagitis (01/12/24) Pain in right shoulder (01/12/24) Abnormal posture (01/12/24) Weakness (01/12/24) Physical Therapy Treatment Note PT-OP-A Visit Information Start: 12/28/23 18:14 Freq: Status: Active Protocol: Document 01/12/24 14:32 AB (Rec: 01/12/24 16:09 AB [id number]) Out-Patient Physical Therapy Visit Information Visit Information Visit Type Treatment Note Visit Note max 24 visits/yr Access Code: [email or web address] Visit Start Time 14:33 Visit Stop Time 15:15 Visit Number 4 Number of CHEMICAL MAKER Visits 2 PT-OP-B Current Condition Start: 12/28/23 18:14 Freq: Status: Active Protocol: Document 01/01/24 08:16 [facility] (Rec: 01/01/24 09:12 [facility] [id number]) Current Condition History of Current Condition Onset Date 30 years w/worsening 2 months ago Current Complaints R shoulder History of Current Condition Pt reports R shoulder pain that started 30 years ago and she had a [employer] business. She saw an ortho that told her ot get out of the business and she hired [employer] but worked 20 years more. It has always given her a lot of trouble selena when cold . Took dgt to [employer] class 2 months ago and was HAbd and hit the rubber chela. She felt something happen and it felt like it disconnected from my arm. Since then, it has had different pains. She can't reach behind or laying on the shoulder. WHen was working out, did feel like shoulder was stronger. DId have injections in the past 20 years ago when saw ortho. 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 Pt reports stomach ache by 2 w /ibuprofen. Has been taking it since [employer] class. Pt takes 800mg at night and first thing in the AM. She takes some again when it seems to wear off. Prior Treatments and Tests PT for neck about 10 years ago ; years ago saw Dr. Valentine- massage helped Treatment Goals Patient/Caregiver Goals Want to get stronger, be able to take trash out at studio, be able to dress and do job w/ o inc pain;not have to ask for help w/activities PT-OP-C Subjective Start: 12/28/23 18:14 Freq: Status: Active Protocol: Document 01/12/24 14:32 AB (Rec: 01/12/24 16:09 AB [id number]) OP-PT Subjective Patient Comments Patient Comments Patient reports the tape helped and needs to be retaped today. Patient reports the shoulder might be a little better. AROM right shoulder flexion 97 deg start of session. PT-OP-F Manual Assessment Start: 12/28/23 18:14 Freq: Status: Active Protocol: Document 01/01/24 08:16 [facility] (Rec: 01/01/24 09:12 [facility] [id number]) Manual Assessments Soft Tissue Assessment Soft Tissue Mobility Assessment tightness/tenderness (scalenes , UT, LS, infra, teres, rhomboids, traps, pecs, biceps tendon) Joint Mobility Assessment Joint Mobility Assessment 1st rib elevated R & clavicle at SC elevated and ant PT-OP-J Posture/Palpation/Skin Start: 12/28/23 18:14 Freq: Status: Active Protocol: Document 01/01/24 08:16 [facility] (Rec: 01/01/24 09:12 [facility] [id number]) Posture Evaluation [facility] Postural Classification System [facility] Postural Classifications Posterior/Anterior Elbow Flexion Test 1 Comments Posture Comments torso rot R; calvicle more pronounced, R scap: abd, ant tipped, protracted, humerus ant in glenoid, fwd head, inc kyphosis PT-OP-K Range of Motion Start: 12/28/23 18:14 Freq: Status: Active Protocol: Document 01/01/24 08:16 [facility] (Rec: 01/01/24 09:12 [facility] [id number]) Shoulder Goniometric Range of Motion Shoulder Right Active Flexion 127 Extension 70 Abduction 125 External Rotation at 0 degrees Abduction 62 Internal Rotation Behind Back (text) T10 Comments pain w/flex, ext, ER IR Left Active Flexion 158 Extension 70 Abduction 180 External Rotation at 90 degrees 97 Abduction External Rotation at 0 degrees Abduction 83 Internal Rotation Behind Back (text) T5 PT-OP-L Special Tests Start: 12/28/23 18:14 Freq: Status: Active Protocol: Document 01/01/24 08:16 [facility] (Rec: 01/01/24 09:12 [facility] [id number]) Special Tests Shoulder Special Tests [place] Test Comments neg Empty Can Comments post Sulcus Test Results neg AC Joint Compression Comments neg Mike Wilberto Impingement Comments pos Ellis's Biceps Comments neg Speed's Biceps Comments pos Neer Impingement Comments pos PT-OP-M Strength Start: 12/28/23 18:14 Freq: Status: Active Protocol: Document 01/01/24 08:16 [facility] (Rec: 01/01/24 09:12 [facility] [id number]) Shoulder Strength Shoulder Manual Muscle Testing Right Flexion 3+ Fair+ Extension 3+ Fair+ Abduction (C5) 3+ Fair+ External Rotation 3+ Fair+ Internal Rotation 4+ Good+ Comments pain Left Flexion 4+ Good+ Extension 5 Normal Abduction (C5) 4+ Good+ External Rotation 5 Normal Internal Rotation 4+ Good+ Elbow/Forearm Strength Elbow and Forearm Manual Muscle Testing Right Flexion (C6) 4+ Good+ Supination 5 Normal Left Flexion (C6) 5 Normal Supination 5 Normal PT-OP-Q Treatments Start: 12/28/23 18:14 Freq: Status: Active Protocol: Document 01/12/24 14:32 AB (Rec: 01/12/24 16:09 AB [id number]) Therapeutic Exercises Supine Exercises reclined shoulder flexion Reps/Minutes X4 not aries without band X 8 with level one band ER aries Comments Patient reports decreased discomfort when performing flex with blue band ER Sidelying Exercises sidelying shoulder ER Side right Reps/Minutes X5 Standing Exercises wall slide flexion Side right Reps/Minutes X10 Comments verbal cues to keep pressure on wall ext Standing Exercise Name rows Side bilateral Equipment Used L1 Reps/Minutes 10 Manual Therapy Treatment Soft Tissue Mobilization right post cuff and periscapular muscles Mobilization Type Cross-Friction,Rolling Intensity/Depth Moderate Body Position Sidelying right pec Body Location right pec Mobilization Type Cross-Friction,Rolling Intensity/Depth Moderate Body Position Hooklying Joint Mobilizations scapular mobilization Joint right scapula Direction into depression and adduction Grade IV Body Position Sidelying Reps/Duration X10 each GH Joint inf and AP right shoulder Grade IV Body Position Hooklying Reps/Duration X10 SC Joint inf right Grade III Body Position Hooklying Reps/Duration X10 AC Joint right at clavicle Direction inf Grade III Body Position Hooklying Reps/Duration X10 Taping right shoulder Treatment Focus for posture and unloading UT, levator scap Type of Tape Kinesiotape PT-OP-T Assessment and Plan Start: 12/28/23 18:14 Freq: Status: Active Protocol: Document 01/12/24 14:32 AB (Rec: 01/12/24 16:09 AB [id number]) Physical Therapy Assessment Assessment Summary Assessment 109 deg AROM right shoulder flexion should allow patient to reach items placed at higher levels in the home, but is not yet WNL. Physical Therapy Plan Frequency and Duration Frequency of Treatment 1-2x/wk Duration of treatment (weeks) 12 Plan of Care Start Date 01/01/24 Plan of Care End Date 03/25/24 Next Visit Focus/Plan Next Note Type Treatment Note Next Visit Plan review exercises, try pulleys, manual: work on upper tspine, rib mobility, ACJ, SCJ, GHJ mobs, assess aries to mini band, single thickness supine vs reclined/possibly add to HEP
--- NOTE | 2024-01-26 16:12 | PT.OTN ---
Current Diagnoses Gastro-esophageal reflux disease without esophagitis (01/26/24) Pain in right shoulder (01/26/24) Abnormal posture (01/26/24) Weakness (01/26/24) Physical Therapy Treatment Note PT-OP-A Visit Information Start: 12/28/23 18:14 Freq: Status: Active Protocol: Document 01/26/24 15:17 AB (Rec: 01/26/24 16:12 AB [id number]) Out-Patient Physical Therapy Visit Information Visit Information Visit Type Treatment Note Visit Note max 24 visits/yr Access Code: [email or web address] Visit Start Time 15:18 Visit Stop Time 16:00 Visit Number 5 Number of PRODUCE PRODUCTION TEAM MEMBER Visits 3 PT-OP-B Current Condition Start: 12/28/23 18:14 Freq: Status: Active Protocol: Document 01/01/24 08:16 [facility] (Rec: 01/01/24 09:12 [facility] [id number]) Current Condition History of Current Condition Onset Date 30 years w/worsening 2 months ago Current Complaints R shoulder History of Current Condition Pt reports R shoulder pain that started 30 years ago and she had a [employer] business. She saw an ortho that told her ot get out of the business and she hired [employer] but worked 20 years more. It has always given her a lot of trouble selena when cold . Took dgt to [employer] class 2 months ago and was HAbd and hit the rubber chela. She felt something happen and it felt like it disconnected from my arm. Since then, it has had different pains. She can't reach behind or laying on the shoulder. WHen was working out, did feel like shoulder was stronger. DId have injections in the past 20 years ago when saw ortho. 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 Pt reports stomach ache by 2 w /ibuprofen. Has been taking it since [employer] class. Pt takes 800mg at night and first thing in the AM. She takes some again when it seems to wear off. Prior Treatments and Tests PT for neck about 10 years ago ; years ago saw Dr. Valentine- massage helped Treatment Goals Patient/Caregiver Goals Want to get stronger, be able to take trash out at studio, be able to dress and do job w/ o inc pain;not have to ask for help w/activities PT-OP-C Subjective Start: 12/28/23 18:14 Freq: Status: Active Protocol: Document 01/26/24 15:17 AB (Rec: 01/26/24 16:12 AB [id number]) OP-PT Subjective Patient Comments Patient Comments Patient reports the pain is different. Popping and clicking persists. AROM right shoulder flexion 126 deg start of session. PT-OP-F Manual Assessment Start: 12/28/23 18:14 Freq: Status: Active Protocol: Document 01/01/24 08:16 [facility] (Rec: 01/01/24 09:12 [facility] [id number]) Manual Assessments Soft Tissue Assessment Soft Tissue Mobility Assessment tightness/tenderness (scalenes , UT, LS, infra, teres, rhomboids, traps, pecs, biceps tendon) Joint Mobility Assessment Joint Mobility Assessment 1st rib elevated R & clavicle at SC elevated and ant PT-OP-J Posture/Palpation/Skin Start: 12/28/23 18:14 Freq: Status: Active Protocol: Document 01/01/24 08:16 [facility] (Rec: 01/01/24 09:12 [facility] [id number]) Posture Evaluation [facility] Postural Classification System [facility] Postural Classifications Posterior/Anterior Elbow Flexion Test 1 Comments Posture Comments torso rot R; calvicle more pronounced, R scap: abd, ant tipped, protracted, humerus ant in glenoid, fwd head, inc kyphosis PT-OP-K Range of Motion Start: 12/28/23 18:14 Freq: Status: Active Protocol: Document 01/01/24 08:16 [facility] (Rec: 01/01/24 09:12 [facility] [id number]) Shoulder Goniometric Range of Motion Shoulder Right Active Flexion 127 Extension 70 Abduction 125 External Rotation at 0 degrees Abduction 62 Internal Rotation Behind Back (text) T10 Comments pain w/flex, ext, ER IR Left Active Flexion 158 Extension 70 Abduction 180 External Rotation at 90 degrees 97 Abduction External Rotation at 0 degrees Abduction 83 Internal Rotation Behind Back (text) T5 PT-OP-L Special Tests Start: 12/28/23 18:14 Freq: Status: Active Protocol: Document 01/01/24 08:16 [facility] (Rec: 01/01/24 09:12 [facility] [id number]) Special Tests Shoulder Special Tests Walker Test Comments neg Empty Can Comments post Sulcus Test Results neg AC Joint Compression Comments neg Mike Wilberto Impingement Comments pos Yergason's Biceps Comments neg Speed's Biceps Comments pos Neer Impingement Comments pos PT-OP-M Strength Start: 12/28/23 18:14 Freq: Status: Active Protocol: Document 01/01/24 08:16 [facility] (Rec: 01/01/24 09:12 [facility] [id number]) Shoulder Strength Shoulder Manual Muscle Testing Right Flexion 3+ Fair+ Extension 3+ Fair+ Abduction (C5) 3+ Fair+ External Rotation 3+ Fair+ Internal Rotation 4+ Good+ Comments pain Left Flexion 4+ Good+ Extension 5 Normal Abduction (C5) 4+ Good+ External Rotation 5 Normal Internal Rotation 4+ Good+ Elbow/Forearm Strength Elbow and Forearm Manual Muscle Testing Right Flexion (C6) 4+ Good+ Supination 5 Normal Left Flexion (C6) 5 Normal Supination 5 Normal PT-OP-Q Treatments Start: 12/28/23 18:14 Freq: Status: Active Protocol: Document 01/26/24 15:17 AB (Rec: 01/26/24 16:12 AB [id number]) Therapeutic Exercises Sidelying Exercises sidelying shoulder IR Side right Reps/Minutes X4 Comments not aries sidelying shoulder ER Side right Reps/Minutes X12 Sitting Exercises pully Sitting Exercise Name scaption Reps/Minutes one minute Standing Exercises high row Side bilateral Resistance level 2 band Reps/Minutes X15 X 2 Comments verbal cues and visual cues row Side bilateral Resistance level one peach band Reps/Minutes X15 Comments verbal cues to perform in pain free range Internal rotation Standing Exercise Name isometric reactive Side right Resistance level one peach band Reps/Minutes X10 Comments verbal cues, monitored for pain external rotation Standing Exercise Name isometric reactive Side right Equipment Used level one peach band Reps/Minutes 10 Comments verbal cues, monitored for pain Manual Therapy Treatment Soft Tissue Mobilization thoracic paraspinals Body Location bilateral Mobilization Type Cross-Friction,Sustained Pressure Intensity/Depth Moderate Body Position Sidelying Comments prior to mobilization right post cuff and periscapular muscles Mobilization Type Cross-Friction,Rolling Intensity/Depth Moderate Body Position Sidelying right pec Body Location right pec Mobilization Type Cross-Friction,Rolling Intensity/Depth Moderate Body Position Hooklying Joint Mobilizations scapular mobilization Joint right scapula Direction into depression and adduction Grade IV Body Position Sidelying Reps/Duration X10 each GH Joint inf and AP right shoulder Grade IV Body Position Hooklying Reps/Duration X10 AC Joint right at clavicle Direction inf Grade III Body Position Hooklying Reps/Duration x8 thoracic Joint thoracic vertebrae Direction PA Grade II Body Position Prone Reps/Duration X6 Comments PA T1-12 Self-Care/Home Management Treatment Activities Self-Care/Home Management Activities high row and isometric reactive shoulder IR and ER added to HEP. PT-OP-T Assessment and Plan Start: 12/28/23 18:14 Freq: Status: Active Protocol: Document 01/26/24 15:17 AB (Rec: 01/26/24 16:12 AB [id number]) Physical Therapy Assessment Goals ROM Short Term Goal (STG) Pt will improve flex and abd to at least 135 without pain STG Duration 02/13 Detention Goal (LTG) Pt will have full RUE (as compared to L) without pain in order to allow dong daily activities w/o inc pain. LTG Duration 03/25 activities Manager Customs Goal (LTG) Pt will report no pain w/ dressing, home tasks or work tasks greater than 1/10. LTG Duration 03/25 strength Short Term Goal (STG) Pt will be indep with HEP STG Duration 02/06 Detention Goal (LTG) Pt will score at least 4/5 on EFT and 4+/5 on all RUE MMT in order to show improved strength in order to do typical work activities w/o pain. LTG Duration 03/25 Quick Dash Impairment 59.1 Short Term Goal (STG) Pt will improve quick dash score to no higher than 40 to show improved functional ability. STG Duration 02/11 Detention Goal (LTG) Pt will improve quick dash score to no higher than 10 to show improved functional ability. LTG Duration 03/25 Assessment Summary Assessment AROM right shoulder flexion 115 end of session, likely due to fatigue. Patient was able to tolerate isometric reactives for shoulder IR and ER this session and was into session with significant increase in right shoulder flexion AROM compared to end of previous session. Physical Therapy Plan Frequency and Duration Frequency of Treatment 1-2x/wk Duration of treatment (weeks) 12 Plan of Care Start Date 01/01/24 Plan of Care End Date 03/25/24 Next Visit Focus/Plan Next Note Type Treatment Note Next Visit Plan review exercises, try pulleys, manual: work on upper tspine, rib mobility, ACJ, SCJ, GHJ mobs, assess aries to mini band, single thickness supine vs reclined/possibly add to HEP
--- NOTE | 2024-02-02 12:39 | PT.OTN ---
Current Diagnoses Gastro-esophageal reflux disease without esophagitis (02/02/24) Pain in right shoulder (02/02/24) Abnormal posture (02/02/24) Weakness (02/02/24) Physical Therapy Treatment Note PT-OP-A Visit Information Start: 12/28/23 18:14 Freq: Status: Active Protocol: Document 02/02/24 08:13 AB (Rec: 02/02/24 12:38 AB [id number]) Out-Patient Physical Therapy Visit Information Visit Information Visit Type Treatment Note Visit Note max 24 visits/yr Access Code: [email or web address] Visit Start Time 09:49 Visit Stop Time 10:30 Visit Number 6 Number of FARM MANAGEMENT ADVISER Visits 4 PT-OP-B Current Condition Start: 12/28/23 18:14 Freq: Status: Active Protocol: Document 01/01/24 08:16 [facility] (Rec: 01/01/24 09:12 [facility] [id number]) Current Condition History of Current Condition Onset Date 30 years w/worsening 2 months ago Current Complaints R shoulder History of Current Condition Pt reports R shoulder pain that started 30 years ago and she had a [employer] business. She saw an ortho that told her ot get out of the business and she hired [employer] but worked 20 years more. It has always given her a lot of trouble selena when cold . Took dgt to [employer] class 2 months ago and was HAbd and hit the rubber chela. She felt something happen and it felt like it disconnected from my arm. Since then, it has had different pains. She can't reach behind or laying on the shoulder. WHen was working out, did feel like shoulder was stronger. DId have injections in the past 20 years ago when saw ortho. 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 Pt reports stomach ache by 2 w /ibuprofen. Has been taking it since [employer] class. Pt takes 800mg at night and first thing in the AM. She takes some again when it seems to wear off. Prior Treatments and Tests PT for neck about 10 years ago ; years ago saw Dr. Valentine- massage helped Treatment Goals Patient/Caregiver Goals Want to get stronger, be able to take trash out at studio, be able to dress and do job w/ o inc pain;not have to ask for help w/activities PT-OP-C Subjective Start: 12/28/23 18:14 Freq: Status: Active Protocol: Document 02/02/24 08:13 AB (Rec: 02/02/24 12:38 AB [id number]) OP-PT Subjective Patient Comments Patient Comments Patient reports she is reaching higher, popping persists. Patient reports the pain is tight and painful posterior shoulder. AROM right shoulder flexion 141 deg start of session. PT-OP-F Manual Assessment Start: 12/28/23 18:14 Freq: Status: Active Protocol: Document 01/01/24 08:16 [facility] (Rec: 01/01/24 09:12 [facility] [id number]) Manual Assessments Soft Tissue Assessment Soft Tissue Mobility Assessment tightness/tenderness (scalenes , UT, LS, infra, teres, rhomboids, traps, pecs, biceps tendon) Joint Mobility Assessment Joint Mobility Assessment 1st rib elevated R & clavicle at SC elevated and ant PT-OP-J Posture/Palpation/Skin Start: 12/28/23 18:14 Freq: Status: Active Protocol: Document 01/01/24 08:16 [facility] (Rec: 01/01/24 09:12 [facility] [id number]) Posture Evaluation [facility] Postural Classification System [facility] Postural Classifications Posterior/Anterior Elbow Flexion Test 1 Comments Posture Comments torso rot R; calvicle more pronounced, R scap: abd, ant tipped, protracted, humerus ant in glenoid, fwd head, inc kyphosis PT-OP-K Range of Motion Start: 12/28/23 18:14 Freq: Status: Active Protocol: Document 01/01/24 08:16 [facility] (Rec: 01/01/24 09:12 [facility] [id number]) Shoulder Goniometric Range of Motion Shoulder Right Active Flexion 127 Extension 70 Abduction 125 External Rotation at 0 degrees Abduction 62 Internal Rotation Behind Back (text) T10 Comments pain w/flex, ext, ER IR Left Active Flexion 158 Extension 70 Abduction 180 External Rotation at 90 degrees 97 Abduction External Rotation at 0 degrees Abduction 83 Internal Rotation Behind Back (text) T5 PT-OP-L Special Tests Start: 12/28/23 18:14 Freq: Status: Active Protocol: Document 01/01/24 08:16 [facility] (Rec: 01/01/24 09:12 [facility] [id number]) Special Tests Shoulder Special Tests Elysian Test Comments neg Empty Can Comments post Sulcus Test Results neg AC Joint Compression Comments neg Mike Wilberto Impingement Comments pos Yergason's Biceps Comments neg Speed's Biceps Comments pos Neer Impingement Comments pos PT-OP-M Strength Start: 12/28/23 18:14 Freq: Status: Active Protocol: Document 01/01/24 08:16 [facility] (Rec: 01/01/24 09:12 [facility] [id number]) Shoulder Strength Shoulder Manual Muscle Testing Right Flexion 3+ Fair+ Extension 3+ Fair+ Abduction (C5) 3+ Fair+ External Rotation 3+ Fair+ Internal Rotation 4+ Good+ Comments pain Left Flexion 4+ Good+ Extension 5 Normal Abduction (C5) 4+ Good+ External Rotation 5 Normal Internal Rotation 4+ Good+ Elbow/Forearm Strength Elbow and Forearm Manual Muscle Testing Right Flexion (C6) 4+ Good+ Supination 5 Normal Left Flexion (C6) 5 Normal Supination 5 Normal PT-OP-Q Treatments Start: 12/28/23 18:14 Freq: Status: Active Protocol: Document 02/02/24 08:13 AB (Rec: 02/02/24 12:38 AB [id number]) Cardio Equipment Upper Body Ergometer (UBE) Duration (Minutes) 2 RPM 150 Height 7 Other standing Therapeutic Exercises Supine Exercises reclined shoulder flexion Equipment Used level one band Reps/Minutes X10 Comments Patient reports decreased discomfort when performing flex with blue band ER flex Supine Exercise Name overhead Equipment Used hands clasped Reps/Minutes X3 with 10 second hold Comments not aries Sidelying Exercises wall push up plus Reps/Minutes X2 Comments Verbal and visual cues, not aries Standing Exercises L stretch Side bilateral Reps/Minutes X8 Comments verbal and visual cues Manual Therapy Treatment Soft Tissue Mobilization right post cuff and periscapular muscles Mobilization Type Cross-Friction,Rolling Intensity/Depth Moderate Body Position Sidelying right pec Body Location right pec Mobilization Type Cross-Friction,Rolling Intensity/Depth Moderate Body Position Hooklying Joint Mobilizations scapular mobilization Joint right scapula Direction into depression and adduction Grade IV Body Position Sidelying Reps/Duration X10 each GH Joint inf and AP right shoulder Grade IV Body Position Hooklying Reps/Duration X10 Taping right shoulder Treatment Focus for posture and unloading UT, levator scap Type of Tape Kinesiotape PT-OP-T Assessment and Plan Start: 12/28/23 18:14 Freq: Status: Active Protocol: Document 02/02/24 08:13 AB (Rec: 02/02/24 12:38 AB [id number]) Physical Therapy Assessment Goals ROM Short Term Goal (STG) Pt will improve flex and abd to at least 135 without pain STG Duration 02/13 Mcc Goal (LTG) Pt will have full RUE (as compared to L) without pain in order to allow dong daily activities w/o inc pain. LTG Duration 03/25 activities Vault Service Mechanic Goal (LTG) Pt will report no pain w/ dressing, home tasks or work tasks greater than 1/10. LTG Duration 03/25 strength Short Term Goal (STG) Pt will be indep with HEP STG Duration 02/06 Mcc Goal (LTG) Pt will score at least 4/5 on EFT and 4+/5 on all RUE MMT in order to show improved strength in order to do typical work activities w/o pain. LTG Duration 03/25 Quick Dash Impairment 59.1 Short Term Goal (STG) Pt will improve quick dash score to no higher than 40 to show improved functional ability. STG Duration 02/11 Vault Service Mechanic Goal (LTG) Pt will improve quick dash score to no higher than 10 to show improved functional ability. LTG Duration 03/25 Assessment Summary Assessment AROM right shoulder flexion 135 deg end of session, likely due to fatigue. Patient into session with 141 deg AROM right shoulder flexion and continues to make steady gains in AROM. Physical Therapy Plan Frequency and Duration Frequency of Treatment 1-2x/wk Duration of treatment (weeks) 12 Plan of Care Start Date 01/01/24 Plan of Care End Date 03/25/24 Next Visit Focus/Plan Next Note Type Treatment Note Next Visit Plan review exercises, try pulleys, manual: work on upper tspine, rib mobility, ACJ, SCJ, GHJ mobs, Progress from isometric reactive ER as able, progress rowss as able
--- NOTE | 2024-02-05 17:50 | PT.OTN ---
Current Diagnoses Gastro-esophageal reflux disease without esophagitis (02/05/24) Pain in right shoulder (02/05/24) Abnormal posture (02/05/24) Weakness (02/05/24) Physical Therapy Treatment Note PT-OP-A Visit Information Start: 12/28/23 18:14 Freq: Status: Active Protocol: Document 02/05/24 16:52 [facility] (Rec: 02/05/24 17:50 [facility] [id number]) Out-Patient Physical Therapy Visit Information Visit Information Visit Type Progress Note Visit Note max 24 visits/yr Access Code: [email or web address] Visit Start Time 16:50 Visit Stop Time 17:30 Visit Number 7 Number of BUSINESS TECHNOLOGY ARCHITECT Visits 0 PT-OP-B Current Condition Start: 12/28/23 18:14 Freq: Status: Active Protocol: Document 01/01/24 08:16 [facility] (Rec: 01/01/24 09:12 [facility] [id number]) Current Condition History of Current Condition Onset Date 30 years w/worsening 2 months ago Current Complaints R shoulder History of Current Condition Pt reports R shoulder pain that started 30 years ago and she had a [employer] business. She saw an ortho that told her ot get out of the business and she hired [email or web address] but worked 20 years more. It has always given her a lot of trouble selena when cold . Took dgt to [employer] class 2 months ago and was HAbd and hit the rubber chela. She felt something happen and it felt like it disconnected from my arm. Since then, it has had different pains. She can't reach behind or laying on the shoulder. WHen was working out, did feel like shoulder was stronger. DId have injections in the past 20 years ago when saw ortho. 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 Pt reports stomach ache by 2 w /ibuprofen. Has been taking it since [employer] class. Pt takes 800mg at night and first thing in the AM. She takes some again when it seems to wear off. Prior Treatments and Tests PT for neck about 10 years ago ; years ago saw Dr. Valentine- massage helped Treatment Goals Patient/Caregiver Goals Want to get stronger, be able to take trash out at studio, be able to dress and do job w/ o inc pain;not have to ask for help w/activities PT-OP-C Subjective Start: 12/28/23 18:14 Freq: Status: Active Protocol: Document 02/05/24 16:52 [facility] (Rec: 02/05/24 17:50 [id number] OP-PT Subjective Patient Comments Patient Comments Pt reports feeling a little dizzy and just a little off today. Unsure if [facility] is making progress PT-OP-F Manual Assessment Start: 12/28/23 18:14 Freq: Status: Active Protocol: Document 01/01/24 08:16 [facility] (Rec: 01/01/24 09:12 [id number][facility] Manual Assessments Soft Tissue Assessment Soft Tissue Mobility Assessment tightness/tenderness (scalenes , UT, LS, infra, teres, rhomboids, traps, pecs, biceps tendon) Joint Mobility Assessment Joint Mobility Assessment 1st rib elevated R & clavicle at SC elevated and ant PT-OP-J Posture/Palpation/Skin Start: 12/28/23 18:14 Freq: Status: Active Protocol: Document 01/01/24 08:16 [facility] (Rec: 01/01/24 09:12 [id number]) Posture Evaluation [facility] Postural Classification System [facility] Postural Classifications Posterior/Anterior Elbow Flexion Test 1 Comments Posture Comments torso rot R; calvicle more pronounced, R scap: abd, ant tipped, protracted, humerus ant in glenoid, fwd head, inc kyphosis PT-OP-K Range of Motion Start: 12/28/23 18:14 Freq: Status: Active Protocol: Document 02/05/24 16:52 [facility] (Rec: 02/05/24 17:50 [facility] [id number]) Shoulder Goniometric Range of Motion Shoulder Right Active Flexion 125 Abduction 112 External Rotation at 0 degrees Abduction 61 Internal Rotation Behind Back (text) L4 Comments pain w/flex, ext, ER IR PT-OP-L Special Tests Start: 12/28/23 18:14 Freq: Status: Active Protocol: Document 01/01/24 08:16 [facility] (Rec: 01/01/24 09:12 [facility] [id number]) Special Tests Shoulder Special Tests Monitor Test Comments neg Empty Can Comments post Sulcus Test Results neg AC Joint Compression Comments neg Mike Wilberto Impingement Comments pos Yergason's Biceps Comments neg Speed's Biceps Comments pos Neer Impingement Comments pos PT-OP-M Strength Start: 12/28/23 18:14 Freq: Status: Active Protocol: Document 02/05/24 16:52 [facility] (Rec: 02/05/24 17:50 [facility] [id number]) Shoulder Strength Shoulder Manual Muscle Testing Right Flexion 3+ Fair+ Extension 4- Good- Abduction (C5) 3+ Fair+ External Rotation 4- Good- Internal Rotation 4+ Good+ Comments pain PT-OP-Q Treatments Start: 12/28/23 18:14 Freq: Status: Active Protocol: Document 02/05/24 16:52 [facility] (Rec: 02/05/24 17:50 [facility] [id number]) Therapeutic Exercises Sitting Exercises scap set Sitting Exercise Name shrug up, ER & set scap down Side bilateral Other Exercises n glide Other Exercise Name radial and med pos for inc pain Side right ROM Other Exercise Name all planes w/goniometry Side right isometrics Other Exercise Name MMT Side right Manual Therapy Treatment Soft Tissue Mobilization post Body Location R lat Comments w/scap movement Joint Mobilizations AC Joint R post scap FM seated ribs Comments external torsion ribs 4-6 FM R thoracic Body Position Sitting Comments transverse L T 5; PA T 7 FM Self-Care/Home Management Treatment Education Other Education BP: 112/76 sit 113/72stand HR: 75 O2: 99% gave pt water in sitting; edu on inc hydration 14 min total today PT-OP-T Assessment and Plan Start: 12/28/23 18:14 Freq: Status: Active Protocol: Document 02/05/24 16:52 [facility] (Rec: 02/05/24 17:50 [facility] [id number]) Physical Therapy Assessment Goals ROM Short Term Goal (STG) Pt will improve flex and abd to at least 135 without pain 02/04-no change until after manual and pt was able to achieve flex to 135 STG Duration 02/13 Gasoline Pump Mechanic Goal (LTG) Pt will have full RUE (as compared to L) without pain in order to allow dong daily activities w/o inc pain. LTG Duration 03/25 activities Nursing Home Goal (LTG) Pt will report no pain w/ dressing, home tasks or work tasks greater than 10/04. 02/04-able to put hair up w/o leaning to the R but still pain w/ADLs LTG Duration 03/25 strength Short Term Goal (STG) Pt will be indep with HEP STG Duration achieved-advancing as able Nursing Home Goal (LTG) Pt will score at least 4/5 on EFT and 4+/5 on all RUE MMT in order to show improved strength in order to do typical work activities w/o pain. 02/04-some progress LTG Duration 03/25 Quick Dash Impairment 59.1 Short Term Goal (STG) Pt will improve quick dash score to no higher than 40 to show improved functional ability. STG Duration 02/11 Gasoline Pump Mechanic Goal (LTG) Pt will improve quick dash score to no higher than 10 to show improved functional ability. LTG Duration 03/25 Assessment Summary Assessment Pt initially came in feeling dizzy and off today, but improved w/water and session focused on education and manual in seated for mobility. She showed min progress from last 6 visits at start of session and had limited L rot but after manual, was able to improve UE flex by 10 deg and had improved L cervical rot to full. Cont PT to work on mobility and strength Physical Therapy Plan Frequency and Duration Frequency of Treatment 1-2x/wk Duration of treatment (weeks) 12 Plan of Care Start Date 01/01/24 Plan of Care End Date 03/25/24 Next Visit Focus/Plan Next Note Type Treatment Note Next Visit Plan PNF scap manual: work on upper tspine, rib mobility, ACJ, SCJ, GHJ mobs, Progress from isometric reactive ER as able, progress rowss as able
--- NOTE | 2024-02-08 10:40 | PT.OTN ---
Current Diagnoses Gastro-esophageal reflux disease without esophagitis (02/08/24) Pain in right shoulder (02/08/24) Abnormal posture (02/08/24) Weakness (02/08/24) Physical Therapy Treatment Note PT-OP-A Visit Information Start: 12/28/23 18:14 Freq: Status: Active Protocol: Document 02/08/24 09:47 [facility] (Rec: 02/08/24 10:40 [facility] [id number]) Out-Patient Physical Therapy Visit Information Visit Information Visit Type Treatment Note Visit Note max 24 visits/yr Access Code: [email or web address] Visit Start Time 09:49 Visit Stop Time 10:29 Visit Number 8 Number of BASTING PULLER Visits 0 PT-OP-B Current Condition Start: 12/28/23 18:14 Freq: Status: Active Protocol: Document 01/01/24 08:16 [facility] (Rec: 01/01/24 09:12 [facility] [id number]) Current Condition History of Current Condition Onset Date 30 years w/worsening 2 months ago Current Complaints R shoulder History of Current Condition Pt reports R shoulder pain that started 30 years ago and she had a [employer] business. She saw an ortho that told her ot get out of the business and she hired [employer] but worked 20 years more. It has always given her a lot of trouble selena when cold . Took dgt to [employer] class 2 months ago and was HAbd and hit the rubber chela. She felt something happen and it felt like it disconnected from my arm. Since then, it has had different pains. She can't reach behind or laying on the shoulder. WHen was working out, did feel like shoulder was stronger. DId have injections in the past 20 years ago when saw ortho. 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 Pt reports stomach ache by 2 w /ibuprofen. Has been taking it since [employer] class. Pt takes 800mg at night and first thing in the AM. She takes some again when it seems to wear off. Prior Treatments and Tests PT for neck about 10 years ago ; years ago saw Dr. Valentine- massage helped Treatment Goals Patient/Caregiver Goals Want to get stronger, be able to take trash out at studio, be able to dress and do job w/ o inc pain;not have to ask for help w/activities PT-OP-C Subjective Start: 12/28/23 18:14 Freq: Status: Active Protocol: Document 02/08/24 09:47 [facility] (Rec: 02/08/24 10:40 [id number][facility] OP-PT Subjective Patient Comments Patient Comments Pt reports felt better after last session w/improved motion but woke up this AM and couldn't move her neck to L and now L shoulder feels tighter too. She found she was sleeping on 2 pillows on accident PT-OP-F Manual Assessment Start: 12/28/23 18:14 Freq: Status: Active Protocol: Document 01/01/24 08:16 [facility] (Rec: 01/01/24 09:12 [id number]) Manual Assessments Soft Tissue Assessment Soft Tissue Mobility Assessment tightness/tenderness (scalenes , UT, LS, infra, teres, rhomboids, traps, pecs, biceps tendon) Joint Mobility Assessment Joint Mobility Assessment 1st rib elevated R & clavicle at SC elevated and ant PT-OP-J Posture/Palpation/Skin Start: 12/28/23 18:14 Freq: Status: Active Protocol: Document 01/01/24 08:16 [facility] (Rec: 01/01/24 09:12 [id number]) Posture Evaluation [facility] Postural Classification System [facility] Postural Classifications Posterior/Anterior Elbow Flexion Test 1 Comments Posture Comments torso rot R; calvicle more pronounced, R scap: abd, ant tipped, protracted, humerus ant in glenoid, fwd head, inc kyphosis PT-OP-K Range of Motion Start: 12/28/23 18:14 Freq: Status: Active Protocol: Document 02/05/24 16:52 [facility] (Rec: 02/05/24 17:50 [facility] [id number]) Shoulder Goniometric Range of Motion Shoulder Right Active Flexion 125 Abduction 112 External Rotation at 0 degrees Abduction 61 Internal Rotation Behind Back (text) L4 Comments pain w/flex, ext, ER IR PT-OP-L Special Tests Start: 12/28/23 18:14 Freq: Status: Active Protocol: Document 01/01/24 08:16 [facility] (Rec: 01/01/24 09:12 [facility] [id number]) Special Tests Shoulder Special Tests [place] Test Comments neg Empty Can Comments post Sulcus Test Results neg AC Joint Compression Comments neg Mike Wilberto Impingement Comments pos Yergason's Biceps Comments neg Speed's Biceps Comments pos Neer Impingement Comments pos PT-OP-M Strength Start: 12/28/23 18:14 Freq: Status: Active Protocol: Document 02/05/24 16:52 [facility] (Rec: 02/05/24 17:50 [facility] [id number]) Shoulder Strength Shoulder Manual Muscle Testing Right Flexion 3+ Fair+ Extension 4- Good- Abduction (C5) 3+ Fair+ External Rotation 4- Good- Internal Rotation 4+ Good+ Comments pain PT-OP-Q Treatments Start: 12/28/23 18:14 Freq: Status: Active Protocol: Document 02/08/24 09:47 [facility] (Rec: 02/08/24 10:40 [facility] [id number]) Manual Therapy Treatment Soft Tissue Mobilization sup Body Location R>L UT, LS, Scalenes, SCM, SO Mobilization Type Rolling Intensity/Depth Moderate Comments supine, s/l, seated post Body Location R lat Comments w/scap movement Joint Mobilizations cervical Comments transverse L C2; UAP C1,2 FM transverse L C4 and 7 FM neg cranial n screen, arterial positional screening, and upper cervical ligamentous testing prior to manual SC Comments distraction and caudal glide FM w/flex AC Joint R post scap FM s/l ribs Comments External torsion ribs 3-4 FM; PA ribs R 2-3 FM; thoracic Comments transverse glide T1-2 FM L; T6 -7 FM L Neuro Re-Education Treatment Movement Re-Education Movement Re-education Activities 1. self chin tuck w/gentle resistsance at chin 2. self T1-2 glide L w/R rot of trunk and neck w/Wt shift to L hip Other Activities facilitation Comments 1. chin tuck w/PT ant shear force at R C7, B C2, C4 sustained holds 2. rhythmic initiation post dep R to sustained holds scap PT-OP-T Assessment and Plan Start: 12/28/23 18:14 Freq: Status: Active Protocol: Document 02/08/24 09:47 [facility] (Rec: 02/08/24 10:40 [facility] [id number]) Physical Therapy Assessment Goals ROM Short Term Goal (STG) Pt will improve flex and abd to at least 135 without pain 02/04-no change until after manual and pt was able to achieve flex to 135 STG Duration 02/13 Mophead Sewer Goal (LTG) Pt will have full RUE (as compared to L) without pain in order to allow dong daily activities w/o inc pain. LTG Duration 03/25 activities Retirement Goal (LTG) Pt will report no pain w/ dressing, home tasks or work tasks greater than 1/10. 02/04-able to put hair up w/o leaning to the R but still pain w/ADLs LTG Duration 03/25 strength Short Term Goal (STG) Pt will be indep with HEP STG Duration achieved-advancing as able Mophead Sewer Goal (LTG) Pt will score at least 4/5 on EFT and 4+/5 on all RUE MMT in order to show improved strength in order to do typical work activities w/o pain. 02/04-some progress LTG Duration 03/25 Quick Dash Impairment 59.1 Short Term Goal (STG) Pt will improve quick dash score to no higher than 40 to show improved functional ability. STG Duration 02/11 Retirement Goal (LTG) Pt will improve quick dash score to no higher than 10 to show improved functional ability. LTG Duration 03/25 Assessment Summary Assessment Pt did well with manual with improved R shoulder ROM, improved R SB and R rot. She had dec pain after and likely shoulder pain is partially related to neural tension restrcitions at ribcage and cervical region. Physical Therapy Plan Frequency and Duration Frequency of Treatment 1-2x/wk Duration of treatment (weeks) 12 Plan of Care Start Date 01/01/24 Plan of Care End Date 03/25/24 Next Visit Focus/Plan Next Note Type Treatment Note Next Visit Plan work on cervical strength and mobility and upper thoracic/ ribcage mobility; PNF for scap stability/engagement
--- NOTE | 2024-02-12 12:22 | PT.OTN ---
Current Diagnoses Gastro-esophageal reflux disease without esophagitis (02/12/24) Pain in right shoulder (02/12/24) Abnormal posture (02/12/24) Weakness (02/12/24) Physical Therapy Treatment Note PT-OP-A Visit Information Start: 12/28/23 18:14 Freq: Status: Active Protocol: Document 02/12/24 11:18 [facility] (Rec: 02/12/24 12:22 [facility] [id number]) Out-Patient Physical Therapy Visit Information Visit Information Visit Type Treatment Note Visit Note max 24 visits/yr Access Code: [email or web address] Visit Start Time 11:18 Visit Stop Time 11:58 Visit Number 9 Number of LANDSCAPE CONTRACTOR Visits 0 PT-OP-B Current Condition Start: 12/28/23 18:14 Freq: Status: Active Protocol: Document 01/01/24 08:16 [facility] (Rec: 01/01/24 09:12 [facility] [id number]) Current Condition History of Current Condition Onset Date 30 years w/worsening 2 months ago Current Complaints R shoulder History of Current Condition Pt reports R shoulder pain that started 30 years ago and she had a [employer] business. She saw an ortho that told her ot get out of the business and she hired [employer] but worked 20 years more. It has always given her a lot of trouble selena when cold . Took dgt to [employer] class 2 months ago and was HAbd and hit the rubber chela. She felt something happen and it felt like it disconnected from my arm. Since then, it has had different pains. She can't reach behind or laying on the shoulder. WHen was working out, did feel like shoulder was stronger. DId have injections in the past 20 years ago when saw ortho. 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 Pt reports stomach ache by 2 w /ibuprofen. Has been taking it since [employer] class. Pt takes 800mg at night and first thing in the AM. She takes some again when it seems to wear off. Prior Treatments and Tests PT for neck about 10 years ago ; years ago saw Dr. Valentine- massage helped Treatment Goals Patient/Caregiver Goals Want to get stronger, be able to take trash out at studio, be able to dress and do job w/ o inc pain;not have to ask for help w/activities PT-OP-C Subjective Start: 12/28/23 18:14 Freq: Status: Active Protocol: Document 02/12/24 11:18 [facility] (Rec: 02/12/24 12:22 [id number] OP-PT Subjective Patient Comments Patient Comments Pt reports neck felt better wlast session.S houlder pain is changing some and feels it under arm in scap region & post shoulder PT-OP-F Manual Assessment Start: 12/28/23 18:14 Freq: Status: Active Protocol: Document 01/01/24 08:16 [facility] (Rec: 01/01/24 09:12 [id number]) Manual Assessments Soft Tissue Assessment Soft Tissue Mobility Assessment tightness/tenderness (scalenes , UT, LS, infra, teres, rhomboids, traps, pecs, biceps tendon) Joint Mobility Assessment Joint Mobility Assessment 1st rib elevated R & clavicle at SC elevated and ant PT-OP-J Posture/Palpation/Skin Start: 12/28/23 18:14 Freq: Status: Active Protocol: Document 01/01/24 08:16 [facility] (Rec: 01/01/24 09:12 [id number]) Posture Evaluation Tori Postural Classification System Tori Postural Classifications Posterior/Anterior Elbow Flexion Test 1 Comments Posture Comments torso rot R; calvicle more pronounced, R scap: abd, ant tipped, protracted, humerus ant in glenoid, fwd head, inc kyphosis PT-OP-K Range of Motion Start: 12/28/23 18:14 Freq: Status: Active Protocol: Document 02/05/24 16:52 [facility] (Rec: 02/05/24 17:50 [id number]) Shoulder Goniometric Range of Motion Shoulder Right Active Flexion 125 Abduction 112 External Rotation at 0 degrees Abduction 61 Internal Rotation Behind Back (text) L4 Comments pain w/flex, ext, ER IR PT-OP-L Special Tests Start: 12/28/23 18:14 Freq: Status: Active Protocol: Document 01/01/24 08:16 [facility] (Rec: 01/01/24 09:12 [facility] [id number]) Special Tests Shoulder Special Tests [place] Test Comments neg Empty Can Comments post Sulcus Test Results neg AC Joint Compression Comments neg Mike Wilberto Impingement Comments pos Yerjayson's Biceps Comments neg Speed's Biceps Comments pos Neer Impingement Comments pos PT-OP-M Strength Start: 12/28/23 18:14 Freq: Status: Active Protocol: Document 02/05/24 16:52 [facility] (Rec: 02/05/24 17:50 [facility] [id number]) Shoulder Strength Shoulder Manual Muscle Testing Right Flexion 3+ Fair+ Extension 4- Good- Abduction (C5) 3+ Fair+ External Rotation 4- Good- Internal Rotation 4+ Good+ Comments pain PT-OP-Q Treatments Start: 12/28/23 18:14 Freq: Status: Active Protocol: Document 02/12/24 11:18 [facility] (Rec: 02/12/24 12:22 [facility] [id number]) Therapeutic Exercises Supine Exercises triceps Supine Exercise Name triceps ext at 90 deg Side bilateral Equipment Used 5# Reps/Minutes 10 Standing Exercises ER Standing Exercise Name isometric in parial range Side right Reps/Minutes 5 secx8 Manual Therapy Treatment Soft Tissue Mobilization thoracic paraspinals Body Location R parapsinals and LT Mobilization Type Strumming Intensity/Depth Moderate Body Position Sitting Comments prior to mobilization sup Body Location R>L UT, LS Mobilization Type Rolling Intensity/Depth Moderate Comments seated post Body Location R lat Comments w/scap movement Joint Mobilizations GH Comments post translation, lat gapping and distraciton FM ribs Comments external torsion R rib 6 FM; PA rib 1 FM R Taping right shoulder Comments KT Tape I strip for post glide humerus PT-OP-T Assessment and Plan Start: 12/28/23 18:14 Freq: Status: Active Protocol: Document 02/12/24 11:18 [facility] (Rec: 02/12/24 12:22 [facility] [id number]) Physical Therapy Assessment Goals ROM Short Term Goal (STG) Pt will improve flex and abd to at least 135 without pain 02/04-no change until after manual and pt was able to achieve flex to 135 STG Duration 02/13 Intermediate Goal (LTG) Pt will have full RUE (as compared to L) without pain in order to allow dong daily activities w/o inc pain. LTG Duration 03/25 activities Treater Goal (LTG) Pt will report no pain w/ dressing, home tasks or work tasks greater than /10. 02/04-able to put hair up w/o leaning to the R but still pain w/ADLs LTG Duration 03/25 strength Short Term Goal (STG) Pt will be indep with HEP STG Duration achieved-advancing as able Treater Goal (LTG) Pt will score at least 4/5 on EFT and 4+/5 on all RUE MMT in order to show improved strength in order to do typical work activities w/o pain. 02/04-some progress LTG Duration 03/25 Quick Dash Impairment 59.1 Short Term Goal (STG) Pt will improve quick dash score to no higher than 40 to show improved functional ability. STG Duration 02/11 Intermediate Goal (LTG) Pt will improve quick dash score to no higher than 10 to show improved functional ability. LTG Duration 03/25 Assessment Summary Assessment Pt has significant limitation in GH glides that does improve w/mobilizations which allos for greater ease of mobility w /shoulder. Pt asked to be taped again and was edu to monitor for skin irritation and take off it if that happens. Improved shoulder mobility w/manual treatment. Physical Therapy Plan Frequency and Duration Frequency of Treatment 1-2x/wk Duration of treatment (weeks) 12 Plan of Care Start Date 01/01/24 Plan of Care End Date 03/25/24 Next Visit Focus/Plan Next Note Type Treatment Note Next Visit Plan work on cervical strength and mobility and upper thoracic/ ribcage mobility; PNF for scap stability/engagement
--- NOTE | 2024-02-26 13:03 | PT.OTN ---
Current Diagnoses Gastro-esophageal reflux disease without esophagitis (02/26/24) Pain in right shoulder (02/26/24) Abnormal posture (02/26/24) Weakness (02/26/24) Physical Therapy Treatment Note PT-OP-A Visit Information Start: 12/28/23 18:14 Freq: Status: Active Protocol: Document 02/26/24 11:17 [facility] (Rec: 02/26/24 13:03 [facility] [id number]) Out-Patient Physical Therapy Visit Information Visit Information Visit Type Treatment Note Visit Note max 24 visits/yr Access Code: [email or web address] Visit Start Time 11:18 Visit Stop Time 12:03 Visit Number 10 Number of CORPORATE STRATEGY ANALYST Visits 0 PT-OP-B Current Condition Start: 12/28/23 18:14 Freq: Status: Active Protocol: Document 01/01/24 08:16 [facility] (Rec: 01/01/24 09:12 [facility] [id number]) Current Condition History of Current Condition Onset Date 30 years w/worsening 2 months ago Current Complaints R shoulder History of Current Condition Pt reports R shoulder pain that started 30 years ago and she had a [employer] business. She saw an ortho that told her ot get out of the business and she hired [employer] but worked 20 years more. It has always given her a lot of trouble selena when cold . Took dgt to [employer] class 2 months ago and was HAbd and hit the rubber hcela. She felt something happen and it felt like it disconnected from my arm. Since then, it has had different pains. She can't reach behind or laying on the shoulder. WHen was working out, did feel like shoulder was stronger. DId have injections in the past 20 years ago when saw ortho. 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 Pt reports stomach ache by 2 w /ibuprofen. Has been taking it since [employer] class. Pt takes 800mg at night and first thing in the AM. She takes some again when it seems to wear off. Prior Treatments and Tests PT for neck about 10 years ago ; years ago saw Dr. Valentine- massage helped Treatment Goals Patient/Caregiver Goals Want to get stronger, be able to take trash out at studio, be able to dress and do job w/ o inc pain;not have to ask for help w/activities PT-OP-C Subjective Start: 12/28/23 18:14 Freq: Status: Active Protocol: Document 02/26/24 11:17 [facility] (Rec: 02/26/24 13:03 [facility] [id number]) OP-PT Subjective Patient Comments Patient Comments Pt reports shoulder has been good/bad. Some days feels good , others not so much PT-OP-F Manual Assessment Start: 12/28/23 18:14 Freq: Status: Active Protocol: Document 01/01/24 08:16 [facility] (Rec: 01/01/24 09:[id number] Manual Assessments Soft Tissue Assessment Soft Tissue Mobility Assessment tightness/tenderness (scalenes , UT, LS, infra, teres, rhomboids, traps, pecs, biceps tendon) Joint Mobility Assessment Joint Mobility Assessment 1st rib elevated R & clavicle at SC elevated and ant PT-OP-J Posture/Palpation/Skin Start: 12/28/23 18:14 Freq: Status: Active Protocol: Document 01/01/24 08:16 [facility] (Rec: 01/01/24 09:12 [id number] Posture Evaluation [facility] Postural Classification System [facility] Postural Classifications Posterior/Anterior Elbow Flexion Test 1 Comments Posture Comments torso rot R; calvicle more pronounced, R scap: abd, ant tipped, protracted, humerus ant in glenoid, fwd head, inc kyphosis PT-OP-K Range of Motion Start: 12/28/23 18:14 Freq: Status: Active Protocol: Document 02/05/24 16:52 [facility] (Rec: 02/05/24 17:50 [facility] [id number]) Shoulder Goniometric Range of Motion Shoulder Right Active Flexion 125 Abduction 112 External Rotation at 0 degrees Abduction 61 Internal Rotation Behind Back (text) L4 Comments pain w/flex, ext, ER IR PT-OP-L Special Tests Start: 12/28/23 18:14 Freq: Status: Active Protocol: Document 01/01/24 08:16 [facility] (Rec: 01/01/24 09:12 [facility] [id number]) Special Tests Shoulder Special Tests [place] Test Comments neg Empty Can Comments post Sulcus Test Results neg AC Joint Compression Comments neg Mike Wilberto Impingement Comments pos Yergason's Biceps Comments neg Speed's Biceps Comments pos Neer Impingement Comments pos PT-OP-M Strength Start: 12/28/23 18:14 Freq: Status: Active Protocol: Document 02/05/24 16:52 [facility] (Rec: 02/05/24 17:50 [facility] [id number]) Shoulder Strength Shoulder Manual Muscle Testing Right Flexion 3+ Fair+ Extension 4- Good- Abduction (C5) 3+ Fair+ External Rotation 4- Good- Internal Rotation 4+ Good+ Comments pain PT-OP-Q Treatments Start: 12/28/23 18:14 Freq: Status: Active Protocol: Document 02/26/24 11:17 [facility] (Rec: 02/26/24 13:03 [facility] [id number]) Manual Therapy Treatment Soft Tissue Mobilization n pathway Body Location R med n pathway w/neural glide Mobilization Type Rolling,Sustained Pressure Intensity/Depth Moderate Comments R cspine, scalenes, 1str ib, pecs, biceps, ant forearm ribcage Comments R coronary ligament s/l w/UE and and ant leaf of R coronary ligament seated w/sit back sup Body Location R>L UT, LS, Scalenes, SCM Mobilization Type Rolling Intensity/Depth Moderate Comments supine, s/l w/scap motions Joint Mobilizations GH Comments R post and lat gapping FM AC Joint R post scap FM s/l ribs Comments caudal rib 1 FM s/l PT-OP-T Assessment and Plan Start: 12/28/23 18:14 Freq: Status: Active Protocol: Document 02/26/24 11:17 [facility] (Rec: 02/26/24 13:03 [facility] [id number]) Physical Therapy Assessment Goals ROM Short Term Goal (STG) Pt will improve flex and abd to at least 135 without pain 02/04-no change until after manual and pt was able to achieve flex to 135 STG Duration 02/13 Belt Picker Goal (LTG) Pt will have full RUE (as compared to L) without pain in order to allow dong daily activities w/o inc pain. LTG Duration 03/25 activities Senior Living Goal (LTG) Pt will report no pain w/ dressing, home tasks or work tasks greater than 1/10. 02/04-able to put hair up w/o leaning to the R but still pain w/ADLs LTG Duration 03/25 strength Short Term Goal (STG) Pt will be indep with HEP STG Duration achieved-advancing as able Senior Living Goal (LTG) Pt will score at least 4/5 on EFT and 4+/5 on all RUE MMT in order to show improved strength in order to do typical work activities w/o pain. 02/04-some progress LTG Duration 03/25 Quick Dash Impairment 59.1 Short Term Goal (STG) Pt will improve quick dash score to no higher than 40 to show improved functional ability. STG Duration 02/11 Senior Living Goal (LTG) Pt will improve quick dash score to no higher than 10 to show improved functional ability. LTG Duration 03/25 Assessment Summary Assessment Pt had good ROM of R shoulder w/much dec pain along w/ improved scap position after manual treatment with greater ease to keep scap neutral. She had less overhead movement pain. Physical Therapy Plan Frequency and Duration Frequency of Treatment 1-2x/wk Duration of treatment (weeks) 12 Plan of Care Start Date 01/01/24 Plan of Care End Date 03/25/24 Next Visit Focus/Plan Next Note Type Treatment Note Next Visit Plan work on R ribcage fasical/ ligaments around liver/ diaphram/ribs
--- NOTE | 2024-03-19 18:26 | PT.OTN ---
Current Diagnoses Gastro-esophageal reflux disease without esophagitis (03/19/24) Pain in right shoulder (03/19/24) Abnormal posture (03/19/24) Weakness (03/19/24) Physical Therapy Treatment Note PT-OP-A Visit Information Start: 12/28/23 18:14 Freq: Status: Active Protocol: Document 03/19/24 14:24 [facility] (Rec: 03/19/24 18:25 [facility] [id number]) Out-Patient Physical Therapy Visit Information Visit Information Visit Type Progress Note Visit Note max 24 visits/yr Visit Start Time 14:25 Visit Stop Time 15:12 Visit Number 11 Number of ORACLE DEVELOPER Visits 0 PT-OP-B Current Condition Start: 12/28/23 18:14 Freq: Status: Active Protocol: Document 01/01/24 08:16 [facility] (Rec: 01/01/24 09:12 [facility] [id number]) Current Condition History of Current Condition Onset Date 30 years w/worsening 2 months ago Current Complaints R shoulder History of Current Condition Pt reports R shoulder pain that started 30 years ago and she had a [employer] business. She saw an ortho that told her ot get out of the business and she hired [employer] but worked 20 years more. It has always given her a lot of trouble selena when cold . Took dgt to [employer] class 2 months ago and was HAbd and hit the rubber chela. She felt something happen and it felt like it disconnected from my arm. Since then, it has had different pains. She can't reach behind or laying on the shoulder. WHen was working out, did feel like shoulder was stronger. DId have injections in the past 20 years ago when saw ortho. 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 Pt reports stomach ache by 2 w /ibuprofen. Has been taking it since [employer] class. Pt takes 800mg at night and first thing in the AM. She takes some again when it seems to wear off. Prior Treatments and Tests PT for neck about 10 years ago ; years ago saw Dr. Valentine- massage helped Treatment Goals Patient/Caregiver Goals Want to get stronger, be able to take trash out at studio, be able to dress and do job w/ o inc pain;not have to ask for help w/activities PT-OP-C Subjective Start: 12/28/23 18:14 Freq: Status: Active Protocol: Document 03/19/24 14:24 [facility] (Rec: 03/19/24 18:25 [facility] [id number]) OP-PT Subjective Patient Comments Patient Comments Pt reports lynne feels better after being in [place] for the past 4 days. She has bene trying to push through moves that are limiting. Still feels tight in scapular and that is a main pain area. today she she had to reach fwd and IR to plug the vaccum and it was painful in arm. PT-OP-F Manual Assessment Start: 12/28/23 18:14 Freq: Status: Active Protocol: Document 01/01/24 08:16 [facility] (Rec: 01/01/24 09:12 [facility] [id number]) Manual Assessments Soft Tissue Assessment Soft Tissue Mobility Assessment tightness/tenderness (scalenes , UT, LS, infra, teres, rhomboids, traps, pecs, biceps tendon) Joint Mobility Assessment Joint Mobility Assessment 1st rib elevated R & clavicle at SC elevated and ant PT-OP-J Posture/Palpation/Skin Start: 12/28/23 18:14 Freq: Status: Active Protocol: Document 01/01/24 08:16 [facility] (Rec: 01/01/24 09:12 [facility] [id number]) Posture Evaluation [facility] Postural Classification System [facility] Postural Classifications Posterior/Anterior Elbow Flexion Test 1 Comments Posture Comments torso rot R; calvicle more pronounced, R scap: abd, ant tipped, protracted, humerus ant in glenoid, fwd head, inc kyphosis PT-OP-K Range of Motion Start: 12/28/23 18:14 Freq: Status: Active Protocol: Document 03/19/24 14:24 [facility] (Rec: 03/19/24 18:25 [facility] [id number]) Cervical Spine Range of Motion Cervical Spine Active Degrees Flexion 52 Extension 58 Rotation Left 70 Rotation Right 74 Lateral Flexion Left 45 Lateral Flexion Right 34 Comments pain R scap w/ext Shoulder Goniometric Range of Motion Shoulder Right Active Flexion 138 Extension 60 Abduction 148 External Rotation at 0 degrees Abduction 61 Internal Rotation Behind Back (text) L1 Comments pain w/flex, abd, ER IR PT-OP-L Special Tests Start: 12/28/23 18:14 Freq: Status: Active Protocol: Document 01/01/24 08:16 [facility] (Rec: 01/01/24 09:12 [facility] [id number]) Special Tests Shoulder Special Tests [place] Test Comments neg Empty Can Comments post Sulcus Test Results neg AC Joint Compression Comments neg Mike Wilberto Impingement Comments pos Yergason's Biceps Comments neg Speed's Biceps Comments pos Neer Impingement Comments pos PT-OP-M Strength Start: 12/28/23 18:14 Freq: Status: Active Protocol: Document 03/19/24 14:24 [facility] (Rec: 03/19/24 18:25 [facility] [id number]) Shoulder Strength Shoulder Manual Muscle Testing Right Flexion 4- Good- Extension 4- Good- Abduction (C5) 3+ Fair+ Adduction 3+ Fair+ External Rotation 4 Good Internal Rotation 5 Normal Comments pain Left Flexion 4+ Good+ Extension 5 Normal Abduction (C5) 4+ Good+ External Rotation 5 Normal Internal Rotation 5 Normal PT-OP-Q Treatments Start: 12/28/23 18:14 Freq: Status: Active Protocol: Document 03/19/24 14:24 [facility] (Rec: 03/19/24 18:25 [facility] [id number]) Therapeutic Exercises Prone Exercises ext Side right Reps/Minutes 10 Comments cues scap retract Habd Side right Reps/Minutes 10 Comments cues scap retract Sidelying Exercises sidelying shoulder abduction Side right Reps/Minutes 10 Comments attempted w/1 lb but too much pain Other Exercises ROM Other Exercise Name all planes w/goniometry Side right isometrics Other Exercise Name MMT Side right Manual Therapy Treatment Soft Tissue Mobilization ribcage Comments R coronary ligament s/l w/UE and and post leaf of R coronary ligament seated w/sit back right pec Body Location right pec Mobilization Type Rolling Intensity/Depth Moderate Body Position Hooklying sup Body Location R UT, LS, Scalenes, SCM Mobilization Type Rolling Intensity/Depth Moderate Comments s/l w/scap motions post Body Location R lat Comments w/scap movement Joint Mobilizations GH Comments R post glide and inf glide FM and distraction w/flex AC Joint R post scap FM s/l ribs Comments caudal rib 1 FM s/l PT-OP-T Assessment and Plan Start: 12/28/23 18:14 Freq: Status: Active Protocol: Document 03/19/24 14:24 [facility] (Rec: 03/19/24 18:25 [facility] [id number]) Physical Therapy Assessment Goals ROM Short Term Goal (STG) Pt will improve flex and abd to at least 135 without pain 02/04-no change until after manual and pt was able to achieve flex to 135 03/19-138 deg but painful STG Duration 04/08 Tripe Washer Goal (LTG) Pt will have full RUE (as compared to L) without pain in order to allow dong daily activities w/o inc pain. 03/19-improved LTG Duration 05/22 activities Alf Goal (LTG) Pt will report no pain w/ dressing, home tasks or work tasks greater than 1/10. 02/04-able to put hair up w/o leaning to the R but still pain w/ADLs 03/19-pain noted still but notes improved ability for some reaching tasks and abilityt o now go through ROM but still painful LTG Duration 05/22 strength Short Term Goal (STG) Pt will be indep with HEP STG Duration achieved-advancing as able Alf Goal (LTG) Pt will score at least 4/5 on EFT and 4+/5 on all RUE MMT in order to show improved strength in order to do typical work activities w/o pain. 02/04-some progress 03/19-EFT 2/5; some strength w/ MMT improvements LTG Duration 05/22 Quick Dash Impairment 59.1 Short Term Goal (STG) Pt will improve quick dash score to no higher than 40 to show improved functional ability. 03/19-56.8 STG Duration 04/23 Alf Goal (LTG) Pt will improve quick dash score to no higher than 10 to show improved functional ability. LTG Duration 05/22 Assessment Summary Assessment pt has made progress w/ROM and strength but does still have pain w/ROM at this time. She does have limited strength in RUE and would benefit from cont skilled care to improved mobility and strength. Pt does report improvement w/PT Physical Therapy Plan Frequency and Duration Frequency of Treatment 1-2x/wk Duration of treatment (weeks) 8 Plan of Care Start Date 03/19/24 Plan of Care End Date 05/22/24 Therapeutic Interventions Therapeutic Interventions Home Exercise Program,Joint Mobilizations,Manual Therapy, Neuromuscular Re-education, Patient/Caregiver Education, Self-Care/Home Management,Soft Tissue Mobilization,Taping, Therapeutic Activities, Therapeutic Exercises Modalities Cold Pack/Ice Massage,Electric Stimulation,Hot Packs, Infrared Therapy,Iontophoresis ,Ultrasound Next Visit Focus/Plan Next Note Type Treatment Note Next Visit Plan work on R ribcage fasical/ ligaments around liver/ diaphram/ribs & work on strength for RUE and scap stability
--- NOTE | 2024-03-19 18:26 | PT.OPPOC ---
Physical, Occupational & Speech Therapy At [facility] Current Diagnoses Gastro-esophageal reflux disease without esophagitis (03/19/24) Pain in right shoulder (03/19/24) Abnormal posture (03/19/24) Weakness (03/19/24) Visit Care Team Role Provider Type LISSETT [place] Attending Provider Advanced Instrument Assembler Family Provider Primary Care Provider Referring Provider Specialty: Family Practice Address: [address] [place] [address], [facility] [place], [address] Email: Plan Of Care PT-OP-T Assessment and Plan Start: 12/28/23 18:14 Freq: Status: Active Protocol: Document 03/19/24 14:24 [facility] (Rec: 03/19/24 18:25 [facility] [id number]) Physical Therapy Assessment Goals ROM Short Term Goal (STG) Pt will improve flex and abd to at least 135 without pain 02/04-no change until after manual and pt was able to achieve flex to 135 03/19-138 deg but painful STG Duration 04/08 Care Home Goal (LTG) Pt will have full RUE (as compared to L) without pain in order to allow dong daily activities w/o inc pain. 03/19-improved LTG Duration 05/22 activities Care Home Goal (LTG) Pt will report no pain w/ dressing, home tasks or work tasks greater than 1/10. 02/04-able to put hair up w/o leaning to the R but still pain w/ADLs 03/19-pain noted still but notes improved ability for some reaching tasks and abilityt o now go through ROM but still painful LTG Duration 05/22 strength Short Term Goal (STG) Pt will be indep with HEP STG Duration achieved-advancing as able Out And Out Cigar Maker Hand Goal (LTG) Pt will score at least 4/5 on EFT and 4+/5 on all RUE MMT in order to show improved strength in order to do typical work activities w/o pain. 02/04-some progress 03/19-EFT 2/5; some strength w/ MMT improvements LTG Duration 05/22 Quick Dash Impairment 59.1 Short Term Goal (STG) Pt will improve quick dash score to no higher than 40 to show improved functional ability. 03/19-56.8 STG Duration 04/23 Out And Out Cigar Maker Hand Goal (LTG) Pt will improve quick dash score to no higher than 10 to show improved functional ability. LTG Duration 05/22 Assessment Summary Assessment pt has made progress w/ROM and strength but does still have pain w/ROM at this time. She does have limited strength in RUE and would benefit from cont skilled care to improved mobility and strength. Pt does report improvement w/PT Physical Therapy Plan Frequency and Duration Frequency of Treatment 1-2x/wk Duration of treatment (weeks) 8 Plan of Care Start Date 03/19/24 Plan of Care End Date 05/22/24 Therapeutic Interventions Therapeutic Interventions Home Exercise Program,Joint Mobilizations,Manual Therapy, Neuromuscular Re-education, Patient/Caregiver Education, Self-Care/Home Management,Soft Tissue Mobilization,Taping, Therapeutic Activities, Therapeutic Exercises Modalities Cold Pack/Ice Massage,Electric Stimulation,Hot Packs, Infrared Therapy,Iontophoresis ,Ultrasound Next Visit Focus/Plan Next Note Type Treatment Note Next Visit Plan work on R ribcage fasical/ ligaments around liver/ diaphram/ribs & work on strength for RUE and scap stability Plan of Care Dates Plan of Care Start Date 03/19/24 Plan of Care End Date 05/22/24 Electronically Signed by: Bianca Baker, PT 03/19/24 4206 If you are in agreement with this Plan of Care, please return a signed and dated copy. I have reviewed this Plan of Care and certify that the skilled therapy services above are required to meet the patient?s needs. Physician Signature Date Printed Name and Credentials Clinical Instructor Signature Printed Name and Credentials
--- NOTE | 2024-04-02 10:21 | PT.OTN ---
Current Diagnoses Gastro-esophageal reflux disease without esophagitis (03/19/24) Pain in right shoulder (03/19/24) Abnormal posture (03/19/24) Weakness (03/19/24) Physical Therapy Treatment Note PT-OP-A Visit Information Start: 12/28/23 18:14 Freq: Status: Active Protocol: Document 04/02/24 09:59 [facility] (Rec: 04/02/24 10:20 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 (Rec: 01/01/24 09:12 [facility] [id number]) Current Condition History of Current Condition Onset Date 30 years w/worsening 2 months ago Current Complaints R shoulder History of Current Condition Pt reports R shoulder pain that started 30 years ago and she had a [employer] business. She saw an ortho that told her ot get out of the business and she hired [employer] but worked 20 years more. It has always given her a lot of trouble selena when cold . Took dgt to [employer] class 2 months ago and was HAbd and hit the rubber chela. She felt something happen and it felt like it disconnected from my arm. Since then, it has had different pains. She can't reach behind or laying on the shoulder. WHen was working out, did feel like shoulder was stronger. DId have injections in the past 20 years ago when saw ortho. 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 Pt reports stomach ache by 2 w /ibuprofen. Has been taking it since [employer] class. Pt takes 800mg at night and first thing in the AM. She takes some again when it seems to wear off. Prior Treatments and Tests PT for neck about 10 years ago ; years ago saw Dr. Valentine- massage helped Treatment Goals Patient/Caregiver Goals Want to get stronger, be able to take trash out at studio, be able to dress and do job w/ o inc pain;not have to ask for help w/activities PT-OP-C Subjective Start: 12/28/23 18:14 Freq: Status: Active Protocol: Document 04/02/24 09:59 [facility] (Rec: 04/02/24 10:20 [id number] OP-PT Subjective Patient Comments Patient Comments pt reports pain was worse the past 3 days. better again today. Lots of clicking. Considering acupuncture. PT-OP-F Manual Assessment Start: 12/28/23 18:14 Freq: Status: Active Protocol: Document 01/01/24 08:16 [facility] (Rec: 01/01/24 09:12 [id number]) Manual Assessments Soft Tissue Assessment Soft Tissue Mobility Assessment tightness/tenderness (scalenes , UT, LS, infra, teres, rhomboids, traps, pecs, biceps tendon) Joint Mobility Assessment Joint Mobility Assessment 1st rib elevated R & clavicle at SC elevated and ant PT-OP-J Posture/Palpation/Skin Start: 12/28/23 18:14 Freq: Status: Active Protocol: Document 01/01/24 08:16 [facility] (Rec: 01/01/24 09:12 [id number]) Posture Evaluation Tori Postural Classification System Tori Postural Classifications Posterior/Anterior Elbow Flexion Test 1 Comments Posture Comments torso rot R; calvicle more pronounced, R scap: abd, ant tipped, protracted, humerus ant in glenoid, fwd head, inc kyphosis PT-OP-K Range of Motion Start: 12/28/23 18:14 Freq: Status: Active Protocol: Document 03/19/24 14:24 [facility] (Rec: 03/19/24 18:25 [facility] [id number]) Cervical Spine Range of Motion Cervical Spine Active Degrees Flexion 52 Extension 58 Rotation Left 70 Rotation Right 74 Lateral Flexion Left 45 Lateral Flexion Right 34 Comments pain R scap w/ext Shoulder Goniometric Range of Motion Shoulder Right Active Flexion 138 Extension 60 Abduction 148 External Rotation at 0 degrees Abduction 61 Internal Rotation Behind Back (text) L1 Comments pain w/flex, abd, ER IR PT-OP-L Special Tests Start: 12/28/23 18:14 Freq: Status: Active Protocol: Document 01/01/24 08:16 [facility] (Rec: 01/01/24 09:12 [id number]) Special Tests Shoulder Special Tests [place] Test Comments neg Empty Can Comments post Sulcus Test Results neg AC Joint Compression Comments neg Mike Wilberto Impingement Comments pos Yergason's Biceps Comments neg Speed's Biceps Comments pos Neer Impingement Comments pos PT-OP-M Strength Start: 12/28/23 18:14 Freq: Status: Active Protocol: Document 03/19/24 14:24 [facility] (Rec: 03/19/24 18:25 [facility] [id number]) Shoulder Strength Shoulder Manual Muscle Testing Right Flexion 4- Good- Extension 4- Good- Abduction (C5) 3+ Fair+ Adduction 3+ Fair+ External Rotation 4 Good Internal Rotation 5 Normal Comments pain Left Flexion 4+ Good+ Extension 5 Normal Abduction (C5) 4+ Good+ External Rotation 5 Normal Internal Rotation 5 Normal PT-OP-Q Treatments Start: 12/28/23 18:14 Freq: Status: Active Protocol: Document 04/02/24 09:59 [facility] (Rec: 04/02/24 10:20 [facility] [id number]) Therapeutic Exercises Supine Exercises serratus punch Side right Equipment Used 1# Reps/Minutes 15 Comments cues no UT Prone Exercises ext Side right Equipment Used 1# Reps/Minutes 10 Comments cues scap retract Habd Prone Exercise Name 1. palm down 2. elbow bent Side right Reps/Minutes 10 ea Comments cues scap retract Sidelying Exercises sidelying shoulder abduction Side right Reps/Minutes 10 Comments cues scap set Manual Therapy Treatment Consent Patient gave verbal consent for manual Yes treatment Soft Tissue Mobilization thoracic paraspinals Body Location R parapsinals and LT & rhomboids Mobilization Type Strumming Intensity/Depth Moderate Body Position Sidelying Comments prior to mobilization post Body Location R delt, lat, teres Mobilization Type Rolling Intensity/Depth Moderate Body Position Sidelying Joint Mobilizations GH Comments R inf glide to humerus FM Neuro Re-Education Treatment Other Activities facilitation Reps/Duration 8 min Comments 1. post dep sustained holds 2. shoulder abd w/inf glide sustained holds vs PT 3. shoulder ER end range sustained hold Self-Care/Home Management Treatment Education Other Education edu that d/t plateau overall, pt would benefit from further assessment of shoulder; edu considering talking to provider about acupuncture, imaging and/or ortho consult PT-OP-T Assessment and Plan Start: 12/28/23 18:14 Freq: Status: Active Protocol: Document 04/02/24 09:59 [facility] (Rec: 04/02/24 10:20 [facility] [id number]) Physical Therapy Assessment Goals ROM Short Term Goal (STG) Pt will improve flex and abd to at least 135 without pain 02/04-no change until after manual and pt was able to achieve flex to 135 03/19-138 deg but painful STG Duration 04/08 Long-Term Goal (LTG) Pt will have full RUE (as compared to L) without pain in order to allow dong daily activities w/o inc pain. 03/19-improved LTG Duration 05/22 activities Long-Term Goal (LTG) Pt will report no pain w/ dressing, home tasks or work tasks greater than 1/10. 02/04-able to put hair up w/o leaning to the R but still pain w/ADLs 03/19-pain noted still but notes improved ability for some reaching tasks and abilityt o now go through ROM but still painful LTG Duration 05/22 strength Short Term Goal (STG) Pt will be indep with HEP STG Duration achieved-advancing as able Power Hair Clipper Goal (LTG) Pt will score at least 4/5 on EFT and 4+/5 on all RUE MMT in order to show improved strength in order to do typical work activities w/o pain. 02/04-some progress 03/19-EFT 2/5; some strength w/ MMT improvements LTG Duration 05/22 Quick Dash Impairment 59.1 Short Term Goal (STG) Pt will improve quick dash score to no higher than 40 to show improved functional ability. 03/19-56.8 STG Duration 04/23 Power Hair Clipper Goal (LTG) Pt will improve quick dash score to no higher than 10 to show improved functional ability. LTG Duration 05/22 Assessment Summary Assessment Pt did well with cues w/ exercises today but does need cues for scap use during strength exercises. It is recommended at this time, for pt to follow up with provider for consideration of referal to ortho and/or further imaging of shoulder as she is making limited progress w/PT overall. Physical Therapy Plan Frequency and Duration Frequency of Treatment 1-2x/wk Duration of treatment (weeks) 8 Plan of Care Start Date 03/19/24 Plan of Care End Date 05/22/24 Next Visit Focus/Plan Next Note Type Treatment Note Next Visit Plan follow up as needed for imprvoing strength/ROM
--- NOTE | 2024-05-06 15:17 | PT.OPDS ---
Current Diagnoses Gastro-esophageal reflux disease without esophagitis (04/02/24) Pain in right shoulder (04/02/24) Abnormal posture (04/02/24) Weakness (04/02/24) Visit Care Team Role Provider Type LISSTET [place] Attending Provider Advanced Automatic Glove Turner And Former Family Provider Primary Care Provider Referring Provider Specialty: Family Practice Address: [address] [place] [address], [facility] [place], [address] Email: [email or web address] Visit Number Visit Number 12 Discharge Summary PT-OP-B Current Condition Start: 12/28/23 18:14 Freq: Status: Active Protocol: Document 01/01/24 08:16 [facility] (Rec: 01/01/24 09:12 [facility] [id number]) Current Condition History of Current Condition Onset Date 30 years w/worsening 2 months ago Current Complaints R shoulder History of Current Condition Pt reports R shoulder pain that started 30 years ago and she had a [employer] business. She saw an ortho that told her ot get out of the business and she hired [employer] but worked 20 years more. It has always given her a lot of trouble selena when cold . Took dgt to [employer] class 2 months ago and was HAbd and hit the rubber chela. She felt something happen and it felt like it disconnected from my arm. Since then, it has had different pains. She can't reach behind or laying on the shoulder. WHen was working out, did feel like shoulder was stronger. DId have injections in the past 20 years ago when saw ortho. 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 Pt reports stomach ache by 2 w /ibuprofen. Has been taking it since [employer] defense class. Pt takes 800mg at night and first thing in the AM. She takes some again when it seems to wear off. Prior Treatments and Tests PT for neck about 10 years ago ; years ago saw Dr. Valentine- massage helped Treatment Goals Patient/Caregiver Goals Want to get stronger, be able to take trash out at studio, be able to dress and do job w/ o inc pain;not have to ask for help w/activities PT-OP-C Subjective Start: 12/28/23 18:14 Freq: Status: Active Protocol: Document 04/02/24 09:59 [facility] (Rec: 04/02/24 10:[id number] OP-PT Subjective Patient Comments Patient Comments pt reports pain was worse the past 3 days. better again today. Lots of clicking. Considering acupuncture. PT-OP-F Manual Assessment Start: 12/28/23 18:14 Freq: Status: Active Protocol: Document 01/01/24 08:16 [facility] (Rec: 01/01/24 09:12 [place] [id number]) Manual Assessments Soft Tissue Assessment Soft Tissue Mobility Assessment tightness/tenderness (scalenes , UT, LS, infra, teres, rhomboids, traps, pecs, biceps tendon) Joint Mobility Assessment Joint Mobility Assessment 1st rib elevated R & clavicle at SC elevated and ant PT-OP-J Posture/Palpation/Skin Start: 12/28/23 18:14 Freq: Status: Active Protocol: Document 01/01/24 08:16 [facility] (Rec: 01/01/24 09:12 [id number] Posture Evaluation [facility] Postural Classification System [facility] Postural Classifications Posterior/Anterior Elbow Flexion Test 1 Comments Posture Comments torso rot R; calvicle more pronounced, R scap: abd, ant tipped, protracted, humerus ant in glenoid, fwd head, inc kyphosis PT-OP-K Range of Motion Start: 12/28/23 18:14 Freq: Status: Active Protocol: Document 03/19/24 14:24 [facility] (Rec: 03/19/24 18:25 [id number]) Cervical Spine Range of Motion Cervical Spine Active Degrees Flexion 52 Extension 58 Rotation Left 70 Rotation Right 74 Lateral Flexion Left 45 Lateral Flexion Right 34 Comments pain R scap w/ext Shoulder Goniometric Range of Motion Shoulder Right Active Flexion 138 Extension 60 Abduction 148 External Rotation at 0 degrees Abduction 61 Internal Rotation Behind Back (text) L1 Comments pain w/flex, abd, ER IR PT-OP-L Special Tests Start: 12/28/23 18:14 Freq: Status: Active Protocol: Document 01/01/24 08:16 [facility] (Rec: 01/01/24 09:12 [facility] [id number]) Special Tests Shoulder Special Tests [place] Test Comments neg Empty Can Comments post Sulcus Test Results neg AC Joint Compression Comments neg Mike Wilberto Impingement Comments pos Yergason's Biceps Comments neg Speed's Biceps Comments pos Neer Impingement Comments pos PT-OP-M Strength Start: 12/28/23 18:14 Freq: Status: Active Protocol: Document 03/19/24 14:24 [facility] (Rec: 03/19/24 18:25 [facility] [id number]) Shoulder Strength Shoulder Manual Muscle Testing Right Flexion 4- Good- Extension 4- Good- Abduction (C5) 3+ Fair+ Adduction 3+ Fair+ External Rotation 4 Good Internal Rotation 5 Normal Comments pain Left Flexion 4+ Good+ Extension 5 Normal Abduction (C5) 4+ Good+ External Rotation 5 Normal Internal Rotation 5 Normal PT-OP-T Assessment and Plan Start: 12/28/23 18:14 Freq: Status: Active Protocol: Document 05/06/24 15:15 [facility] (Rec: 05/06/24 15:17 [facility] [id number]) Physical Therapy Assessment Goals ROM Short Term Goal (STG) Pt will improve flex and abd to at least 135 without pain 02/04-no change until after manual and pt was able to achieve flex to 135 03/19-138 deg but painful STG Duration 04/08 Correction Goal (LTG) Pt will have full RUE (as compared to L) without pain in order to allow dong daily activities w/o inc pain. 03/19-improved LTG Duration 05/22 activities Correction Goal (LTG) Pt will report no pain w/ dressing, home tasks or work tasks greater than 1/10. 02/04-able to put hair up w/o leaning to the R but still pain w/ADLs 03/19-pain noted still but notes improved ability for some reaching tasks and abilityt o now go through ROM but still painful LTG Duration 05/22 strength Short Term Goal (STG) Pt will be indep with HEP STG Duration achieved-advancing as able Sr. Vendor Management Associate Goal (LTG) Pt will score at least 4/5 on EFT and 4+/5 on all RUE MMT in order to show improved strength in order to do typical work activities w/o pain. 02/04-some progress 03/19-EFT 2/5; some strength w/ MMT improvements LTG Duration 05/22 Quick Dash Impairment 59.1 Short Term Goal (STG) Pt will improve quick dash score to no higher than 40 to show improved functional ability. 03/19-56.8 STG Duration 04/23 Sr. Vendor Management Associate Goal (LTG) Pt will improve quick dash score to no higher than 10 to show improved functional ability. LTG Duration 05/22 Assessment Summary Assessment When pt last seen, encouraged to follow up w/her primary and consider ortho consult as she had only made partial progress w/PT and was still having inc pain w/movement. Chart left open if pt wanted to schedule further, but pt has not scheduled further in past month. DC d/t no longer attending PT Physical Therapy Plan Discharge Physical Therapy Discharge Reasons No Longer Attending PT
== END 2024-05-09 08:45 | disposition home or self-care (01) ==
LOC: PHYS 09:00
PROVIDERS: Family Provider Internal Medicine; PCP Internal Medicine; Referring Provider Internal Medicine; Visit Provider Internal Medicine
DX: M25.511 Pain in right shoulder (principal); K21.9 Gastro-esophageal reflux disease without esophagitis; R29.3 Abnormal posture; R53.1 Weakness
CPT/HCPCS: 97110; 97112; 97140; 97162; 97535

== ENCOUNTER → 2024-06-10 13:38 | Outpatient (CLI) | payer OTHER, MEDICAID, SELFPAY ==
--- NOTE | 2024-06-10 13:39 | DI.MRI.S_ITS ---
PROCEDURE: MR SHOULDER RT WO CON INDICATIONS: Acute pain of right shoulder TECHNIQUE: Noncontrast oblique coronal T2 fast spin echo with fat saturation, oblique sagittal T1 spin echo and T2 fast spin echo with fat saturation, axial T1 spin echo and T2 fast spin echo with fat saturation through the shoulder. COMPARISON: None. FINDINGS: Image quality: Excellent. Rotator cuff: There is full-thickness rupture involving distal supraspinatus at its insertion on humeral head with up to 1.3 cm medial retraction of torn tendon fibers to the level of acromion. Low-grade bursal surface partial-thickness tear involving distal infraspinatus is seen extending to musculotendinous junction. Low-grade partial-thickness tear is seen involving superior to mid fibers of distal subscapularis. Sagittal images demonstrate mild supraspinatus muscle atrophy. Bones and bursae: No bone marrow contusions or fractures. Moderate acromioclavicular joint osteoarthritic changes are seen with joint space narrowing and downward osteophyte formation depressing the musculotendinous junction of supraspinatus. Type 1 acromion, without an os acromiale. Small to moderate amount of joint effusion and subacromial subdeltoid bursal fluid, no gross loose bodies. Capsule and soft tissues: Subtle signal abnormality and fraying of superior anterior labrum is seen concerning for subtle superior anterior labral tear. The long head of the biceps tendon demonstrates normal location and morphology. The rotator interval appears normal, without fibrosis. The coracohumeral ligament is normal in thickness. IMPRESSION: 1. Full-thickness rupture involving distal supraspinatus at its insertion on the humeral head with up to 1.3 cm medial retraction of torn tendon fibers to the level of acromion. Low-grade bursal surface partial-thickness tear involving distal infraspinatus extending to musculotendinous junction. Low-grade partial-thickness tear involving superior fibers of distal subscapularis. Mild supraspinatus muscle atrophy. 2. Moderate acromioclavicular joint osteoarthritis. No fracture or dislocation. Small to mod and subacromial subdeltoid bursal fluid, no loose bodies. 3. Finding is concerning for subtle superior anterior right glenoid labral tear. Dictated by: Alexy Portillo M.D. on 06/10/2024 at 15:04 Approved by: Alexy Portillo M.D. on 06/10/2024 at 15:14
== END ==
LOC: MRI 13:38
PROVIDERS: Family Provider Internal Medicine; PCP Internal Medicine; Referring Provider Internal Medicine; Visit Provider Internal Medicine
DX: M75.121 Complete rotator cuff tear or rupture of right shoulder, not specified as traumatic (principal); M19.011 Primary osteoarthritis, right shoulder; M25.511 Pain in right shoulder
CPT/HCPCS: 73221

== ENCOUNTER → 2024-11-04 17:19 | Outpatient (CLI) | payer OTHER, SELFPAY ==
--- NOTE | 2024-11-04 17:20 | DI.MG.S_ITS ---
BILATERAL DIGITAL SCREENING MAMMOGRAM 3D/2D WITH CAD: 11/04/2024 CLINICAL: Routine screening. Family history of breast cancer. Comparison is made to exams dated: 10/10/2023 mammogram, 02/24/2022 mammogram, and 12/16/2020 mammogram - [facility]. The breasts are heterogeneously dense, which may obscure small masses (category c / 51-75% glandular tissue). Current study was also evaluated with a Computer Aided Detection (CAD) system. There is a new 0.7 cm oval equal density focal asymmetry in the right breast at 5 o'clock anterior depth. No other significant masses, calcifications, or other findings are seen in either breast. IMPRESSION: INCOMPLETE: NEED ADDITIONAL IMAGING EVALUATION The new 0.7 cm oval equal density focal asymmetry in the right breast resembles a cyst and is indeterminate. Additional views with possible ultrasound are recommended. Based on Tyrer-Cuzick model (a risk assessment model), the patient's lifetime risk is 22.5% and her 10 year risk is 7.6%. If a patient has an elevated risk, a more comprehensive evaluation should be considered and/or a referral to a genetic counselor. The [employer] [place] [employer], [employer], and NCCN Guidelines advise the consideration of Breast MRI as an adjunct to screening mammography in patients whose Lifetime risk to develop breast cancer is 20% or higher. This exam was interpreted at Station ID: [id number]. NOTE: For mammograms, a report in lay terms will be sent to the patient. Approximately 15% of breast malignancies will not be visualized mammographically. In the management of a palpable breast mass, a negative mammogram must not discourage biopsy of a clinically suspicious lesion. Electronically Signed By: Alfa Thrasher M.D. aty/:11/05/2024 07:58:31 copy to: LALA CISSE letter sent: Additional Imaging Needed ACR BI-RADS Category 0: Incomplete: Need Additional Imaging Evaluation
== END ==
PROVIDERS: Family Provider Internal Medicine; PCP Internal Medicine; Referring Provider Internal Medicine; Visit Provider Internal Medicine
DX: Z12.31 Encounter for screening mammogram for malignant neoplasm of breast (principal); Z80.3 Family history of malignant neoplasm of breast; R92.333 Mammographic heterogeneous density, bilateral breasts
CPT/HCPCS: 77063; 77067

== ENCOUNTER → 2024-12-10 09:26 | Outpatient (CLI) | payer OTHER, SELFPAY ==
--- NOTE | 2024-12-10 09:27 | DI.MG.S_ITS ---
MM diagnostic mammo unilat RT, US breast RT limited: 12/10/2024 BI-RADS: 2 CLINICAL: 54-year old female for right diagnostic mammogram and right diagnostic breast ultrasound that is a recall from screening, bilateral, digital, tomosynthesis, w/mammo cad on 11/04/2024. [facility] lifetime risk of 18.7%. Current reported family history of breast cancer: mother. PRIOR EXAMS 11/04/2024, 10/10/2023, 04/12/2022, 02/24/2022, 12/16/2020, 05/13/2019, 05/03/2018, 02/28/2017, 07/04/2016. MAMMOGRAPHY TECHNIQUE: 2D and 3D (tomosynthesis) digital mammographic views obtained, with additional images as needed for full coverage. Current study was also evaluated with a Computer Aided Detection (CAD) system. ULTRASOUND TECHNIQUE Real-time strikcland scale and color doppler imaging of the area of clinical interest was performed with image documentation. Right targeted breast ultrasound of the area of clinical interest and the axilla was performed with image documentation. DENSITY Right: C. The breasts are heterogeneously dense, which may obscure small masses. MAMMOGRAPHY FINDINGS Right (finding-1): Lower Inner Quadrant, 5 cm from nipple, Middle depth, measuring 0.8 cm: Correlating with findings on screening mammogram there is an oval, low-density mass present. There are additional similar appearing stable low-density oval masses scattered throughout the right breast. ULTRASOUND FINDINGS Right (finding-1): Lower at 6:00, 5 cm from nipple, measuring 0.7 x 0.3 x 0.6 cm: Correlating with findings on mammogram there is a simple cyst present. IMPRESSION: Right * No evidence of malignancy with benign findings. RECOMMENDATIONS Bilateral * Annual screening mammography in eleven months (October 2025). OVERALL ASSESSMENT CATEGORY BI-RADS-2: Benign. The [employer] recommends annual screening mammography beginning at age 40 for women with average risk of breast cancer. ELECTRONICALLY SIGNED: Margarita Leon M.D. on 12/10/2024 at 11:40:37 AM PT Interpreting Station ID: [id number]
== END ==
PROVIDERS: Family Provider Internal Medicine; PCP Registered Nurse; Referring Provider Registered Nurse; Visit Provider Registered Nurse
DX: R92.8 Other abnormal and inconclusive findings on diagnostic imaging of breast (principal); R92.333 Mammographic heterogeneous density, bilateral breasts; N60.01 Solitary cyst of right breast; Z80.3 Family history of malignant neoplasm of breast
CPT/HCPCS: 76642; 77065; G0279